=== PATIENT | male | born 1935 | race Caucasian/White ===

== ENCOUNTER 2017-11-17 12:08 | Emergency (ER) | payer MEDICARE ==
[~2017-11-17] VITALS: Ht 167.6 cm; Wt 73.5 kg
--- NOTE | 2017-11-17 12:43 | ED Lower Extremity ---
General Chief Complaint: Lower Extremity Stated Complaint: PAIN IN LT LEG,FOOT NUMB Source: patient Exam Limitations: no limitations History of Present Illness Date Seen by Provider: Nov 17, 2017 Time Seen by Provider: 12:38 Initial Comments The patient is an 82-year-old white male who presents with complaints of pain, numbness, and a sensation of coldness in his left foot this began last evening and lasted for several hours. He reports that he eventually put on socks when he got up this morning this seemed to feel better. His concern goes back some years. 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 He is not so sure which iliac. In 2004 he then had an intervention which ultimately led to a clot being removed in one iliac or femoral and stents in the other. He has done well since that time. Regrettably throughout all of this, he has continued to smoke. Onset: yesterday Pain/Injury Location: left foot Method of Injury: other Allergies and Home Medications Allergies Coded Allergies: lisinopril (Unverified Allergy, Unknown, 11/17/17) Home Medications Aspirin 81 Mg Tab.chew, 81 MG PO once a day, (Reported) Carvedilol 25 Mg Tablet, 25 MG PO BID, (Reported) Digoxin 0.125 Mg/2.5 Ml Solution, 0.125 MG PO day , (Reported) Furosemide 20 Mg Tablet, 20 MG PO every morning, (Reported) Losartan Potassium 50 Mg Tablet, 50 MG PO DAILY, (Reported) Spironolactone 25 Mg Tablet, 25 MG PO every morning, (Reported) Patient Home Medication List Home Medication List Reviewed: Yes Constitutional: see HPI Respiratory: no symptoms reported Cardiovascular: no symptoms reported Gastrointestinal: no symptoms reported Genitourinary: no symptoms reported Musculoskeletal: no symptoms reported Skin: no symptoms reported, see HPI Psychiatric/Neurological: No Symptoms Reported Past Cdyfaiq-Rthxbu-Arljjj Hx Patient Social History Recent Foreign Travel: No Contact w/Someone Who Travel: No Physical Exam Vital Signs Vital Signs - First Documented 11/17/17 12:13 Temp 97.5 Pulse 65 B/P (MAP) 167/89 (115) Pulse Ox 96 O2 Delivery Room Air Capillary Refill : General Appearance: WD/WN, no apparent distress HEENT: normal ENT inspection Neck: full range of motion Cardiovascular: normal peripheral pulses, regular rate, rhythm, no edema, no gallop, no JVD, no murmur Respiratory: chest non-tender, lungs clear, normal breath sounds, no respiratory distress, no accessory muscle use Gastrointestinal: normal bowel sounds, non tender, soft, no organomegaly, no pulsatile mass Back: normal inspection, no CVA tenderness, no vertebral tenderness Legs: right leg non-tender; bilateral leg non-tender; right leg normal inspection; bilateral leg normal inspection; right leg normal range of motion; bilateral leg normal range of motion; right leg no evidence of injury; bilateral leg no evidence of injury; right leg abrasions, right leg limited range of motion, right leg swelling 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 The femoral pulses are 2-3+ and equal bilaterally. The feet are warm. The color is normal. The tips of the toes are pink. There is good capillary fill bilaterally. The dorsalis pedis pulses are faint at best. The posterior tibials are 1+ bilaterally. Progress/Results/Core Measures Results/Orders Lab Results Laboratory Tests Test 11/17/17 12:50 11/17/17 13:05 Range/Units Urine Color YELLOW Urine Clarity CLEAR Urine pH 6 5-9 Urine Specific [place] 1.015 L 1.016-1.022 Urine Protein 2+ H NEGATIVE Urine Glucose (UA) NEGATIVE NEGATIVE Urine Ketones NEGATIVE NEGATIVE Urine Nitrite NEGATIVE NEGATIVE Urine Bilirubin 1+ H NEGATIVE Urine Urobilinogen 1 NORMAL MG/DL Urine Leukocyte Esterase 1+ H NEGATIVE Urine RBC (Auto) 5+ H NEGATIVE Urine RBC 0-2 /HPF Urine WBC 2-5 /HPF Urine Squamous Epithelial Cells RARE /HPF Urine Renal Epithelial Cells NONE /HPF Urine Crystals NONE /LPF Urine Bacteria TRACE /HPF Urine Casts PRESENT /LPF Urine Hyaline Casts >50 H /LPF Urine Mucus SMALL H /LPF Urine Culture Indicated NO White Blood Count 9.8 4.3-11.0 10^3/uL Red Blood Count 4.14 L 4.35-5.85 10^6/uL Hemoglobin 14.6 13.3-17.7 G/DL Hematocrit 41 40-54 % Mean Corpuscular Volume 99 80-99 FL Mean Corpuscular Hemoglobin 35 H 25-34 PG Mean Corpuscular Hemoglobin Concent 36 32-36 G/DL Red Cell Distribution Width 13.2 10.0-14.5 % Platelet Count 246 130-400 10^3/uL Mean Platelet Volume 9.7 7.4-10.4 FL Neutrophils (%) (Auto) 74 42-75 % Lymphocytes (%) (Auto) 16 12-44 % Monocytes (%) (Auto) 8 0-12 % Eosinophils (%) (Auto) 3 0-10 % Basophils (%) (Auto) 0 0-10 % Neutrophils # (Auto) 7.2 1.8-7.8 X 10^3 Lymphocytes # (Auto) 1.5 1.0-4.0 X 10^3 Monocytes # (Auto) 0.8 0.0-1.0 X 10^3 Eosinophils # (Auto) 0.2 0.0-0.3 10^3/uL Basophils # (Auto) 0.0 0.0-0.1 10^3/uL Sodium Level 139 135-145 MMOL/L Potassium Level 5.5 H 3.6-5.0 MMOL/L Chloride Level 107 98-107 MMOL/L Carbon Dioxide Level 22 21-32 MMOL/L Anion Gap 10 5-14 MMOL/L Blood Urea Nitrogen 18 7-18 MG/DL Creatinine 1.29 0.60-1.30 MG/DL Estimat Glomerular Filtration Rate 53 BUN/Creatinine Ratio 14 Glucose Level 105 70-105 MG/DL Calcium Level 8.9 8.5-10.1 MG/DL Total Bilirubin 0.8 0.1-1.0 MG/DL Aspartate Amino Transf (AST/SGOT) 25 5-34 U/L Alanine Aminotransferase (ALT/SGPT) 17 0-55 U/L Alkaline Phosphatase 47 40-136 U/L Total Protein 7.1 6.4-8.2 GM/DL Albumin 3.9 3.2-4.5 GM/DL My Orders Orders - MICAELA MORIN MD Cbc With Automated Diff (11/17/17 12:46) Comprehensive Metabolic Panel (11/17/17 12:46) Ua Culture If Indicated (11/17/17 12:46) Us Cole Lower Ext [id number] (11/17/17 12:46) Vital Signs/I&O 11/17/17 12:13 Temp 97.5 Pulse 65 B/P (MAP) 167/89 (115) Pulse Ox 96 O2 Delivery Room Air Departure Communication (Admissions) [id number] the sonographic Report has returned. It confirms what I was able to palpate which is to say no dorsalis pedis pulse and a week posterior tibial these findings were discussed with the patient. He is currently taking one 81 mg aspirin per day. He has previously seen Dr. Medina in [place]. He was informed that our cardiologists do peripheral vascular work as well. He was informed that this would involve the a dye study and possible stenting. He is not yet ready to undertake that. He was again suggested that he stop smoking. He replied that he had heard that many times before. We compromised by agreeing that he would call Impression Primary Impression: peripheral vascular disease Disposition: 01 HOME, SELF-CARE Condition: Improved Departure-Patient Inst. Decision time for Depature: 15:17 Referrals: NO,LOCAL PHYSICIAN (PCP) Primary Care Physician Add. Discharge Instructions: All discharge instructions reviewed with patient and/or family. Voiced understanding. Continue one aspirin daily. Stop smoking If recurrent symptoms contact Dr. Sewell,s office at [phone] for appointment MICAELA MORIN MD Nov 17, 2017 12:43
[2017-11-17 13:09] LABS: CLARITY,URINE CLEAR; COLOR,URINE YELLOW; GLUCOSE, URINE (UA) NEGATIVE (NEGATIVE); KETONES,URINE NEGATIVE (NEGATIVE); LEUKOCYTE ESTERASE ,URINE 1+ (NEGATIVE); NITRITE,URINE NEGATIVE (NEGATIVE); PH,URINE 6 (5-9); PROTEIN,URINE 2+ (NEGATIVE); UROBILINOGEN,URINE 1 MG/DL (NORMAL)
[2017-11-17 13:13] LABS: BASOPHILS % (AUTO) 0 % (0-10); EOSINOPHILS # (AUTO) 0.2 10^3/uL (0.0-0.3); EOSINOPHILS % (AUTO) 3 % (0-10); HEMATOCRIT 41 % (40-54); HEMOGLOBIN 14.6 G/DL (13.3-17.7); LYMPHOCYTES # (AUTO) 1.5 X 10^3 (1.0-4.0); LYMPHOCYTES % (AUTO) 16 % (12-44); MEAN CORPUSCULAR HEMOGLOBIN 35 PG (25-34); MEAN CORPUSCULAR HGB CONC 36 G/DL (32-36); MEAN CORPUSCULAR VOLUME 99 FL (80-99); MEAN PLATELET VOLUME 9.7 FL (7.4-10.4); MONOCYTES # (AUTO) 0.8 X 10^3 (0.0-1.0); MONOCYTES % (AUTO) 8 % (0-12); NEUTROPHILS # (AUTO) 7.2 X 10^3 (1.8-7.8); NEUTROPHILS % (AUTO) 74 % (42-75); PLATELET COUNT 246 10^3/uL (130-400); RED BLOOD COUNT 4.14 10^6/uL (4.35-5.85); RED CELL DISTRIBUTION WIDTH 13.2 % (10.0-14.5); WHITE BLOOD COUNT 9.8 10^3/uL (4.3-11.0)
[2017-11-17] MEDS ORDERED: CARV25TA PO (13:30)
[2017-11-17] MEDS ORDERED: FURO20TA4 PO (13:30)
[2017-11-17] MEDS ORDERED: DIGO0.12 PO (13:30)
[2017-11-17] MEDS ORDERED: LOSA50TA36 PO (13:30)
[2017-11-17] MEDS ORDERED: SPIR25TA3 PO (13:30)
[2017-11-17 13:31] LABS: BACTERIA,URINE TRACE /HPF; HYALINE CASTS, URINE >50 /LPF; RBC,URINE 0-2 /HPF; SQUAMOUS EPITHELIAL CELL,UR RARE /HPF
[2017-11-17] MEDS ORDERED: ASPI-999 PO (13:33)
[2017-11-17] MEDS ORDERED: ACET-77 PO (13:33)
[2017-11-17 13:45] LABS: ALBUMIN 3.9 GM/DL (3.2-4.5); BILIRUBIN,TOTAL 0.8 MG/DL (0.1-1.0); CALCIUM 8.9 MG/DL (8.5-10.1); CREATININE SERUM 1.29 MG/DL (0.60-1.30); POTASSIUM 5.5 MMOL/L (3.6-5.0); TOTAL PROTEIN 7.1 GM/DL (6.4-8.2)
[2017-11-17 14:58] LABS: BILIRUBIN,URINE 1+ (NEGATIVE)
--- NOTE | 2017-11-17 14:59 | Diagnostic Imaging Report ---
INDICATION: Left foot pain. TECHNIQUE: The bilateral lower extremity arterial Doppler study was performed in the routine fashion with color-flow Doppler and waveform analysis. FINDINGS: On the right side, there is diffuse plaquing. There is moderate velocity elevation of the mid SFA on the right side and distal SFA, compatible with moderate stenoses. Flow converts to monophasic in the tibial vessels. On the left side, there is mild velocity elevation in the common femoral artery. There is monophasic flow in the left posterior tibial artery with no flow detected in the dorsalis pedis. IMPRESSION: Peripheral vascular disease as described above with a moderate stenosis in the right SFA and a moderate stenosis in the left common femoral artery. There is monophasic flow in the tibial vessels on the right side. There is slow monophasic flow in the left posterior tibial artery with absent flow in the dorsalis pedis on the left side. Consider angiography or CTA for further anatomic definition as clinically warranted. Dictated by: Dictated on workstation # [id number]
[2017-11-17 15:29] VITALS: BP 143/114
== END 2017-11-17 15:33 | disposition home or self-care (01) ==
LOC: ER 12:12
DX: I73.9 Peripheral vascular disease, unspecified (principal); Z79.82 Long term (current) use of aspirin; Z88.8 Allergy status to other drugs, medicaments and biological substances
CPT/HCPCS: 36415; 80053; 81000; 85025; 93925

== ENCOUNTER 2018-08-03 09:42 | Inpatient (IN) | payer MEDICARE ==
[2018-08-03] VITALS (12 sets, daily range): BP systolic 87–154; BP diastolic 55–118
[~2018-08-03] VITALS: Ht 167.6 cm; Wt 73.6 kg
[~2018-08-03 09:42] MED LIST: ACET-77 PO; ASPI-999 PO; CARV25TA PO; DIGO0.12 PO; FURO20TA4 PO; LOSA50TA63 PO; SPIR25TA5 PO
--- OUTSIDE RECORDS SUMMARY | 2018-08-03 09:58 | XMS REPORT ---
Author Author ACACIA PATEL Organization [facility] Address [address] [place] [address] Care Team Providers Care House Wirer Helper Name Role Phone ACACIA PATEL Unavailable PROBLEMS Unknown Problems ALLERGIES Substance Reaction Event Type Date Status Lisinopril Unknown Drug Allergy Nov, Active ENCOUNTERS Encounter Location Date Diagnosis [facility] [address] [facility] [id number] [address] Nov, Lower abdominal pain R10.30 IMMUNIZATIONS No Known Immunizations SOCIAL HISTORY Never Assessed REASON FOR VISIT Right sided abd pain started yesterday- emesis x1 JStrasserRN PLAN OF CARE Activity Details Follow Up prn Reason: VITAL SIGNS Height 66 in 2017-11-08 Weight 163 lbs 2017-11-08 Temperature 97.3 degrees Fahrenheit 2017-11-08 Heart Rate 64 bpm 2017-11-08 Respiratory Rate 20 2017-11-08 BMI 26.31 kg/m2 2017-11-08 Blood pressure systolic 124 mmHg 2017-11-08 Blood pressure diastolic 78 mmHg 2017-11-08 MEDICATIONS Medication Instructions Dosage Frequency Start Date End Date Duration Status Digoxin 125 MCG Orally Once a day 1 tablet 24h Active Furosemide 20 MG Orally Once a day 1 tablet 24h Active Spironolactone 25 MG Orally Once a day 1 tablet with food 24h Active Carvedilol 25 MG Active Losartan Potassium 50 MG Orally Once a day 1 tablet 24h Active Garlic Oil 3 MG Active Vitamin E 400 UNIT Orally Once a day 1 capsule 24h Active Acetaminophen 500 MG Orally every 6 hrs 1 capsule as needed 6h Active ASA 1 tab Active RESULTS Name Result Date Reference Range Xray : Abdomen 2v (Upright and KUB) - IN HOUSE 2017-11-08 PROCEDURES Procedure Date Ordered Result Body Site X-RAY EXAM ABDOMEN 2 VIEWS November 08, 2017 INSTRUCTIONS MEDICATIONS ADMINISTERED No Known Medications
[2018-08-03 10:42] LABS: BASOPHILS % (AUTO) 0 % (0-10); EOSINOPHILS # (AUTO) 0.1 10^3/uL (0.0-0.3); EOSINOPHILS % (AUTO) 1 % (0-10); HEMATOCRIT 36 % (40-54); HEMOGLOBIN 12.2 G/DL (13.3-17.7); LYMPHOCYTES # (AUTO) 0.8 X 10^3 (1.0-4.0); LYMPHOCYTES % (AUTO) 9 % (12-44); MEAN CORPUSCULAR HEMOGLOBIN 36 PG (25-34); MEAN CORPUSCULAR HGB CONC 34 G/DL (32-36); MEAN CORPUSCULAR VOLUME 107 FL (80-99); MONOCYTES # (AUTO) 0.5 X 10^3 (0.0-1.0); MONOCYTES % (AUTO) 5 % (0-12); NEUTROPHILS # (AUTO) 7.8 X 10^3 (1.8-7.8); NEUTROPHILS % (AUTO) 86 % (42-75); PLATELET COUNT 140 10^3/uL (130-400); RED CELL DISTRIBUTION WIDTH 13.8 % (10.0-14.5); WHITE BLOOD COUNT 9.2 10^3/uL (4.3-11.0)
[2018-08-03 10:53] LABS: ALBUMIN 3.7 GM/DL (3.2-4.5); BILIRUBIN,TOTAL 1.2 MG/DL (0.1-1.0); CALCIUM 8.9 MG/DL (8.5-10.1); CREATININE SERUM 1.49 MG/DL (0.60-1.30); MAGNESIUM 2.3 MG/DL (1.8-2.4); POTASSIUM 3.7 MMOL/L (3.6-5.0); TOTAL PROTEIN 6.5 GM/DL (6.4-8.2)
--- NOTE | 2018-08-03 11:06 | Diagnostic Imaging Report ---
INDICATION: Dyspnea PA and lateral views of the chest are obtained. There is no previous study available at this time for comparison. Overall heart size and pulmonary vascularity are within normal limits. There is no pneumothorax or consolidation. No significant pleural fluid is identified. There is increased density over the lower chest bilaterally. This appears to be related to superimposed breast tissue. IMPRESSION: No acute abnormalities identified. Dictated by: Dictated on workstation # [id number]
[2018-08-03 11:13] LABS: TSH (THYROID ANALYZER) 0.63 UIU/ML (0.35-4.94)
--- NOTE | 2018-08-03 12:19 | ED General ---
General Chief Complaint: Respiratory Problems Stated Complaint: SOB, COUGH OF PHLEGM Nursing Triage Note: PT AMBULATES TO ROOM 4 PT CO OF SOA, PT HAS PROD COUGH HAS BEEN SICK FOR 2 WEEKS Nursing Sepsis Screen: No Definite Risk Source of Information: Patient, Family, Old Records Exam Limitations: No Limitations History of Present Illness Date Seen by Provider: Aug 03, 2018 Time Seen by Provider: 09:55 Initial Comments This 83-year-old gentleman presents to the emergency room with complaints of cough with productive sputum, sweats, dyspnea on exertion, and weakness that started about 2 weeks ago. He denies any chest pain today but has had a few twinges of chest pain in the recent past, last episode was a few days ago. He is on digoxin. He sees Dr. Petitt in [place] for his cardiac care. He has not actually seen at Dr. Pettit yet but did see his nurse practitioner July 20. I did call Dr. Pettit's office. They do not have any recent studies on this patient such as echo, stress test, or cardiac catheter. Patient does have A. fib. He takes aspirin but is not anticoagulated. Patient answers questions appropriately but is not a particularly good historian. He is on digoxin. Allergies and Home Medications Allergies Coded Allergies: lisinopril (Unverified Allergy, Unknown, 11/17/17) Home Medications Aspirin 81 Mg Tab.chew, 81 MG PO once a day, (Reported) Carvedilol 25 Mg Tablet, 25 MG PO BID, (Reported) Digoxin 0.125 Mg/2.5 Ml Solution, 0.125 MG PO , (Reported) Furosemide 20 Mg Tablet, 20 MG PO every morning, (Reported) Losartan Potassium 50 Mg Tablet, 50 MG PO DAILY, (Reported) Spironolactone 25 Mg Tablet, 25 MG PO every morning, (Reported) Patient Home Medication List Home Medication List Reviewed: Yes Review of Systems Review of Systems Constitutional: see HPI EENTM: no symptoms reported Respiratory: see HPI Cardiovascular: see HPI Gastrointestinal: no symptoms reported Genitourinary: no symptoms reported Musculoskeletal: no symptoms reported Skin: no symptoms reported Psychiatric/Neurological: No Symptoms Reported Hematologic/Lymphatic: No Symptoms Reported Immunological/Allergic: no symptoms reported Past Obkbzkb-Dwblbr-Hpgjpm Hx Patient Social History Alcohol Use: Rarely Uses Alcohol Beverage of Choice: Beer Recreational Drug Use: No Smoking Status: Current Everyday Smoker Type Used: Cigarettes 2nd Hand Smoke Exposure: Yes Recent Foreign Travel: No Contact w/Someone Who Travel: No Recent Infectious Disease Expo: No Recent Hopitalizations: No Seasonal Allergies Seasonal Allergies: No Past Medical History Surgeries: Yes Abdominal, Cardiac, Vascular Surgery (abdominal aortic aneurysm repair) Respiratory: Yes COPD Aneurysm, Atrial Fibrillation, Deep Vein Thrombosis, Hypertension Neurological: No Genitourinary: No Gastrointestinal: No Musculoskeletal: No Endocrine: No HEENT: No Cancer: No Psychosocial: No Integumentary: No Blood Disorders: No Adverse Reaction/Blood Tranf: No Physical Exam Vital Signs Vital Signs - First Documented 08/03/18 09:50 Temp 99.9 Pulse 78 Resp 23 B/P (MAP) 130/101 (111) Pulse Ox 93 Capillary Refill : Less Than 3 Seconds Height, Weight, BMI Height: 5'6.00" Weight: 165lbs. oz. 74.306335yu; BMI Method:Stated General Appearance: No Apparent Distress, WD/WN HEENT: PERRL/EOMI, Normal ENT Inspection Neck: Normal Inspection Respiratory: No Accessory Muscle Use, No Respiratory Distress, Crackles ( subtle in the bases) Cardiovascular: No Murmur, Irregularly Irregular (normal rate), Other (trace lower extremity edema) Gastrointestinal: Normal Bowel Sounds, Non Tender, Soft Extremity: Non Tender, Other (trace lower extremity edema) Neurologic/Psychiatric: Alert, Oriented x3, No Motor/Sensory Deficits, Normal Mood/Affect, mill tender II-XII Norm as Tested Skin: Normal Color, Warm/Dry Progress/Results/Core Measures Suspected Sepsis Recent Fever Within 48 Hours: No Infection Criteria Present: None New/Unexplained Altered Menta: No Sepsis Screen: No Definite Risk SIRS Temperature:99.9 Pulse: 78 Respiratory Rate: 23 Laboratory Tests 08/03/18 10:20: White Blood Count 9.2 Blood Pressure 130 /101 Mean: 111 Laboratory Tests 08/03/18 10:20: Creatinine 1.49H, Platelet Count 140, Total Bilirubin 1.2H Results/Orders Lab Results Laboratory Tests Test 08/03/18 10:20 Range/Units White Blood Count 9.2 4.3-11.0 10^3/uL Red Blood Count 3.40 L 4.35-5.85 10^6/uL Hemoglobin 12.2 L 13.3-17.7 G/DL Hematocrit 36 L 40-54 % Mean Corpuscular Volume 107 H 80-99 FL Mean Corpuscular Hemoglobin 36 H 25-34 PG Mean Corpuscular Hemoglobin Concent 34 32-36 G/DL Red Cell Distribution Width 13.8 10.0-14.5 % Platelet Count 140 130-400 10^3/uL Mean Platelet Volume 12.0 H 7.4-10.4 FL Neutrophils (%) (Auto) 86 H 42-75 % Lymphocytes (%) (Auto) 9 L 12-44 % Monocytes (%) (Auto) 5 0-12 % Eosinophils (%) (Auto) 1 0-10 % Basophils (%) (Auto) 0 0-10 % Neutrophils # (Auto) 7.8 1.8-7.8 X 10^3 Lymphocytes # (Auto) 0.8 L 1.0-4.0 X 10^3 Monocytes # (Auto) 0.5 0.0-1.0 X 10^3 Eosinophils # (Auto) 0.1 0.0-0.3 10^3/uL Basophils # (Auto) 0.0 0.0-0.1 10^3/uL Sodium Level 144 135-145 MMOL/L Potassium Level 3.7 3.6-5.0 MMOL/L Chloride Level 103 98-107 MMOL/L Carbon Dioxide Level 26 21-32 MMOL/L Anion Gap 15 H 5-14 MMOL/L Blood Urea Nitrogen 28 H 7-18 MG/DL Creatinine 1.49 H 0.60-1.30 MG/DL Estimat Glomerular Filtration Rate 45 BUN/Creatinine Ratio 19 Glucose Level 181 H 70-105 MG/DL Calcium Level 8.9 8.5-10.1 MG/DL Corrected Calcium 9.1 8.5-10.1 MG/DL Magnesium Level 2.3 1.8-2.4 MG/DL Total Bilirubin 1.2 H 0.1-1.0 MG/DL Aspartate Amino Transf (AST/SGOT) 48 H 5-34 U/L Alanine Aminotransferase (ALT/SGPT) 37 0-55 U/L Alkaline Phosphatase 55 40-136 U/L Troponin I 0.115 H <0.028 NG/ML C-Reactive Protein High Sensitivity 6.18 H 0.00-0.50 MG/DL B-Type Natriuretic Peptide 2247.8 H <100.0 PG/ML Total Protein 6.5 6.4-8.2 GM/DL Albumin 3.7 3.2-4.5 GM/DL TSH [place] Testing 0.63 0.35-4.94 UIU/ML Digoxin Level 1.13 0.80-2.00 NG/ML Micro Results Microbiology 08/03/18 Influenza Types A,B Antigen (ANGE) - Final, Complete My Orders Orders - BENNY GARCIA MD BNP (08/03/18 10:32) Cbc With Automated Diff (08/03/18 10:32) Comprehensive Metabolic Panel (08/03/18 10:32) Hs C Reactive Protein (08/03/18 10:32) Magnesium (08/03/18 10:32) Thyroid Analyzer (08/03/18 10:32) Troponin I (08/03/18 10:32) Influenza A And B Antigens (08/03/18 10:32) Saline Lock/Iv-Start (08/03/18 10:32) Ekg Tracing (08/03/18 10:32) Monitor-Rhythm Ecg Trace Only (08/03/18 10:32) Chest Pa/Lat (2 View) (08/03/18 10:32) Digoxin (08/03/18 11:35) Vital Signs/I&O 08/03/18 09:50 Temp 99.9 Pulse 78 Resp 23 B/P (MAP) 130/101 (111) Pulse Ox 93 Capillary Refill : Less Than 3 Seconds Blood Pressure Mean: 111 ECG Initial ECG Impression Date: Aug 03, 2018 Initial ECG Impression Time: 09:55 Initial ECG Rate: 81 Initial ECG Rhythm: A Fib/Flutter Initial ECG Impression: Atrial Fibrillation Comment Rate controlled atrial fibrillation. No ST elevation or depression. Diagnostic Imaging Diagonstic Imaging: Xray Plain Films/CT/US/NM/MRI: chest Comments Chest x-ray viewed by me and report reviewed. See report below: NAME: MARCOS LOPEZ [facility] REC#: [id number] PT STATUS: REG ER : 1935 PHYSICIAN: BENNY GARCIA MD ADMIT DATE: 08/03/18/ER Draft Date of Exam:08/03/18 CHEST PA/LAT (2 VIEW) INDICATION: Dyspnea PA and lateral views of the chest are obtained. There is no previous study available at this time for comparison. Overall heart size and pulmonary vascularity are within normal limits. There is no pneumothorax or consolidation. No significant pleural fluid is identified. There is increased density over the lower chest bilaterally. This appears to be related to superimposed breast tissue. IMPRESSION: No acute abnormalities identified. Dictated on workstation # [id number] Dict: 08/03/18 1103 Trans: 08/03/18 1106 AMBROSE [id number] Interpreted by: ARANZA BURGESS MD Departure Communication (Admissions) Time/Spoke to Admitting Phy: 12:10 Dr. Irby Time/Spoke to Consulting Phy: 11:55 Dr. Sidhu Impression Primary Impression: Dyspnea Qualified Codes: R06.09 - Other forms of dyspnea Additional Impressions: Cough Chest pain Qualified Codes: R07.9 - Chest pain, unspecified Disposition: ADMITTED INPATIENT Condition: Stable Admissions Decision to Admit Reason: Admit from ER (General) Decision to Admit/Date: Aug 03, 2018 Time/Decision to Admit Time: 11:55 Departure-Patient Inst. Referrals: NO,LOCAL PHYSICIAN (PCP/Family) Primary Care Physician BENNY GARCIA MD Aug 03, 2018 12:19
--- NOTE | 2018-08-03 13:07 | Consultation-Cardiology ---
HPI-Cardiology Cardiology Consultation: Date of Consultation 08/03/18 Time Seen by a Provider: 13:00 Date of Admission Attending Physician Syl Irby MD Admitting Physician No,Local Physician Consulting Physician BRAD MATTHEWS MD, MA, FACP, FACC, FSCAI, CCDS HPI: Chief Complaint: CC: Shortness of breath, cough 83 yo man with several days of increasing shortness of breath and cough productive of yellowish sputum and gen malaise. Occ twinges of sharp, left- or right-sided chest pain, mild to mod, lasting only a few seconds, occurring daily. No leg swelling or palp or syncope Review of Systems-Cardiology Review of Systems Constitutional: malaise, tiredness; No weight loss, No weight gain Eyes: No vision change Ears/Nose/Throat: No ear discharge, No recent hearing loss Respiratory: As described under HPI Cardiovascular: As described under HPI Gastrointestinal: No constipation, No diarrhea, No nausea, No vomiting, No stool coloration changes Genitourinary: No dysuria, No hematuria, No urine frequency changes Musculoskeletal: back pain (chronic) Skin: No rash, No ulcerations Psychiatric/Neurological: No focal weakness, No syncope Hematologic: No bleeding abnormalities HHX-Thbhin-Jwimyi Hx Patient Social History Alcohol Use: Rarely Uses Recreational Drug Use: No Smoking Status: Current Everyday Smoker Type Used: Cigarettes 2nd Hand Smoke Exposure: Yes Recent Foreign Travel: No Recent Infectious Disease Expo: No Hospitalization with Isolation: Denies Past Medical History PMH As described under Assessment. Allergies and Home Medications Allergies Coded Allergies: lisinopril (Unverified Allergy, Unknown, 11/17/17) Home Medications Aspirin 81 Mg Tab.chew, 81 MG PO once a day, (Reported) Carvedilol 25 Mg Tablet, 25 MG PO BID, (Reported) Digoxin 0.125 Mg/2.5 Ml Solution, 0.125 MG PO day , (Reported) Furosemide 20 Mg Tablet, 20 MG PO every morning, (Reported) Losartan Potassium 50 Mg Tablet, 50 MG PO DAILY, (Reported) Spironolactone 25 Mg Tablet, 25 MG PO every morning, (Reported) Patient Home Medication List Home Medication List Reviewed: Yes Physical Exam-Cardiology Physical Exam Vital Signs/I&O 08/03/18 08/03/18 09:50 12:40 Temp 99.9 Pulse 78 77 Resp 23 23 B/P (MAP) 130/101 (111) 134/92 (106) Pulse Ox 93 93 Capillary Refill : Less Than 3 Seconds Constitutional: AAO x 3, well-developed, well-nourished HEENT: other (edentulous upper jaw; several missing teeth in lower jaw), EOMI, hearing is well preserved; No xanthelasmas are seen Neck: carotid pulses are 2 + bilaterally, with good upstrokes Respiratory: No accessory muscle use; other (scattered rhonchi, prolonged exp) Cardiovascular: irregularly irregular, S1 and S2, systolic murmur (soft BHANU at card base) Gastrointestinal: No tender; soft; No guarding, No rebound; audible bowel sounds Extremities: No clubbing, No cyanosis, No significant edema Neurologic/Psychiatric: oriented x 3, grossly intact, power is 5/5 both on sides Skin: No rash on exposed areas, No ulcerations on exposed areas Data Review Labs Laboratory Tests 08/03/18 10:20: White Blood Count 9.2, Red Blood Count 3.40L, Hemoglobin 12.2L, Hematocrit 36L, Mean Corpuscular Volume 107H, Mean Corpuscular Hemoglobin 36H, Mean Corpuscular Hemoglobin Concent 34, Red Cell Distribution Width 13.8, Platelet Count 140, Mean Platelet Volume 12.0H, Neutrophils (%) (Auto) 86H, Lymphocytes (%) (Auto) 9L, Monocytes (%) (Auto) 5, Eosinophils (%) (Auto) 1, Basophils (%) (Auto) 0, Neutrophils # (Auto) 7.8, Lymphocytes # (Auto) 0.8L, Monocytes # (Auto) 0.5, Eosinophils # (Auto) 0.1, Basophils # (Auto) 0.0, Sodium Level 144, Potassium Level 3.7, Chloride Level 103, Carbon Dioxide Level 26, Anion Gap 15H, Blood Urea Nitrogen 28H, Creatinine 1.49H, Estimat Glomerular Filtration Rate 45, BUN/ Creatinine Ratio 19, Glucose Level 181H, Calcium Level 8.9, Corrected Calcium 9.1, Magnesium Level 2.3, Total Bilirubin 1.2H, Aspartate Amino Transf (AST/SGOT ) 48H, Alanine Aminotransferase (ALT/SGPT) 37, Alkaline Phosphatase 55, Troponin I 0.115H, C-Reactive Protein High Sensitivity 6.18H, B-Type Natriuretic Peptide 2247.8H, Total Protein 6.5, Albumin 3.7, TSH [place] Testing 0.63, Digoxin Level 1.13 Microbiology 08/03/18 Influenza Types A,B Antigen (ANGE) - Final, Complete Laboratory Tests 08/03/18 10:20 A/P-Cardiology Assessment/Admission Diagnosis Shortness of breath, multifactorial (see below) Ac exac of COPD due to lower resp tract infection Ac CHF of undetermined etiology, probably systolic (based on patient's home med list) 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 Arterial u/s of November 2017: moderate stenosis in the right SFA and the left common femoral artery; monophasic flow in the tibial vessels on the right side. There is slow monophasic flow in the left posterior tibial artery with absent flow in the dorsalispedis on the left side Non-compliance. 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 We will continue therapy with bb, furosemide , and spironolactone * We will obtain an echocardiogram * Will also need myocard perf imaging to eval for infarction / ischemia when clinically improved * We have advised immediate and complete smoking cessation * He needs OAC for stroke prophylaxis (is on none currently). I reviewed this issue with him in detail. He seems willing * We will continue ASA because he provides a vague h/o a "heart attack," he seems to have had no cor interventions * Further recs to be based on his hosp course BRAD MATTHEWS MD FACP [facility] CCDS Aug 03, 2018 13:07
[2018-08-03] MEDS ORDERED: CATHETER FLUSH 10 ML SYR IV PRN (13:30)
[2018-08-03] MEDS ORDERED: SPIRONOLACTONE 25 MG (ALDACTONE) TAB PO NR (13:45)
[2018-08-03] MEDS ORDERED: APIXABAN 5 MG (ELIQUIS) TABLET PO NR (13:45)
[2018-08-03] MEDS ORDERED: NS IV 1000 ML 1,000 ML IV SCH (13:45)
[2018-08-03] MEDS ORDERED: FUROSEMIDE 40 MG/4 ML INJ (LASIX) IVP NR (13:45)
[2018-08-03] MEDS ORDERED: ASPI-983 PO (14:00)
[2018-08-03] MEDS ORDERED: DIGO125T PO (14:00)
--- NOTE | 2018-08-03 14:03 | NUR ---
SPOKE WITH THE PATIENT ABOUT HIS MEDICATIONS. HE HAD MOST OF HIS BOTTLES [facility] WITH [facility] HE FORGOT HIS COREG AND ASPIRIN AT HOME BUT VERIFIED HOW HE TAKES THEM. [facility] BOTTLES HE HAS WITH HIM: 05-24-18 FUROSEMIDE 20MG BID #180 05-20-18 LOSARTAN 50MG DAILY #90 05-18-18 SPIRONOLACTONE 25MG DAILY #90 05-10-18 DIGOXIN 0.125 DAILY #90 HE STATES HE ALSO HAS COREG 25MG AT HOME, HE IS CURRENTLY TAKING 1/2 TAB BID. HE ALSO TAKES ASPIRIN 81MG DAILY OTC.
--- NOTE | 2018-08-03 14:08 | History & Physical-Hospitalist ---
History of Present Illness HPI/Chief Complaint Pt is an 83yoCM with a PMH of CHF, PAD, CAD who presented to the ER due to weakness, coughing, and SOB. He states his symptoms started a few days ago and he thought he had the flu. He denies any fevers though or sick contacts. He has had some swelling of his legs though. He otherwise is unable to provide me much history. He believes he has had a previous cardiac work up at [facility] but he's not for sure if that's correct and he doesn't know what was done. He also thinks he had an SC 4-5 years ago but is unsure about that as well. Source: patient Exam Limitations: clinical condition Date Seen 08/03/18 Time Seen by a Provider: 14:00 Attending Physician Rell Irby MD PCP No,Local Physician Referring Physician Date of Admission Aug 03, 2018 at 12:34 Home Medications & Allergies Home Medications Reviewed patient Home Medication Reconciliation performed by pharmacy medication reconciliations prosthetics technician and/or nursing. Patients Allergies have been reviewed. Allergies Allergies Coded Allergies lisinopril (Unverified Allergy, Unknown, 11/17/17) Past Dyrsiww-Hveboc-Wvieek Hx Past Med/Social Hx: Reviewed Nursing Past Med/Soc Hx Patient Social History Alcohol Use: Rarely Uses Alcohol Beverage of Choice: Beer Recreational Drug Use: No Smoking Status: Current Everyday Smoker Type Used: Cigarettes 2nd Hand Smoke Exposure: Yes Recent Foreign Travel: No Contact w/other who traveled: No Recent Hopitalizations: No Recent Infectious Disease Expo: No Immunizations Up To Date Date of Pneumonia Vaccine: Mar 07, 2015 Date of Influenza Vaccine: Mar 07, 2018 Seasonal Allergies Seasonal Allergies: No Past Medical History Surgeries: Abdominal, Cardiac, Vascular Surgery (abdominal aortic aneurysm repair) Cardiac: Aneurysm, Atrial Fibrillation, Cardiomyopathy, Coronary Artery Disease , Deep Vein Thrombosis, Hypertension History of Blood Disorders: No Adverse Reaction to Blood Ramos: No Family History Reviewed Nursing Family Hx No Pertinent Family Hx Review of Systems Constitutional: chills; No fever; weakness Respiratory: cough; No orthopnea; short of breath Cardiovascular: No chest pain, No palpitations Gastrointestinal: No abdominal pain, No diarrhea; loss of appetite; No nausea, No vomiting Genitourinary: decreased output; No dysuria Musculoskeletal: no symptoms reported Skin: no symptoms reported Psychiatric/Neurological: No Symptoms Reported Physical Exam Physical Exam Vital Signs Vital Signs - First Documented 08/03/18 08/03/18 08/03/18 09:50 13:15 17:35 Temp 99.9 Pulse 78 Resp 23 B/P (MAP) 130/101 (111) Pulse Ox 93 O2 Delivery Room Air FiO2 21 Capillary Refill : Less Than 3 Seconds Height, Weight, BMI Height: 5'6.00" Weight: 165lbs. 0.0oz. 74.414641wy; 26.6 BMI Method:Stated General Appearance: No Apparent Distress, Chronically ill HEENT: Moist Mucous Membranes; No Scleral Icterus (L), No Scleral Icterus (R) Neck: Normal Inspection, Supple Respiratory: Lungs Clear, No Accessory Muscle Use, No Respiratory Distress Cardiovascular: Regular Rate, Rhythm, No Murmur, Normal Peripheral Pulses Gastrointestinal: Normal Bowel Sounds, Non Tender, Soft Extremity: Normal Capillary Refill, Non Tender, No Calf Tenderness, Pedal Edema (trace) Neurologic/Psychiatric: Alert, Oriented x3 (but poor insight), No Motor/ Sensory Deficits, Normal Mood/Affect Skin: Normal Color, Warm/Dry Results Results/Procedures Labs Laboratory Tests 08/03/18 10:20 08/04/18 03:40 Patient resulted labs reviewed. Imaging: Reviewed Imaging Report Imaging Date of Exam: 08/03/18 CHEST PA/LAT (2 VIEW) INDICATION: Dyspnea PA and lateral views of the chest are obtained. There is no previous study available at this time for comparison. Overall heart size and pulmonary vascularity are within normal limits. There is no pneumothorax or consolidation. No significant pleural fluid is identified. There is increased density over the lower chest bilaterally. This appears to be related to superimposed breast tissue. IMPRESSION: No acute abnormalities identified. Assessment/Plan Admission Diagnosis CHF exacerbation Admission Status: Inpatient Order (span 2 midnights) Reason for Inpatient Admission: On lasix and failed outpatient management, elevated troponin Diagnosis/Problems Diagnosis/Problems (1) CHF exacerbation Status: Acute Assessment & Plan: Unsure of is systolic dysfunction but given med list likely etiology SOB with BNP elevation Continue on home ARB, BB, spirolactone IV Lasix Echo ordered Cardiology consulted, appreciate recs Qualifiers: Heart failure type: systolic Qualified Codes: I50.23 - Acute on chronic systolic (congestive) heart failure (2) COPD (chronic obstructive pulmonary disease) Status: Chronic Assessment & Plan: Likely underlying COPD given 62 pack year history No wheezing or oxygen requirement Will add MAT Protocol Qualifiers: COPD type: unspecified COPD Qualified Codes: J44.9 - Chronic obstructive pulmonary disease, unspecified (3) Atrial fibrillation Status: Chronic Assessment & Plan: Continue Coreg Rate controlled Dr Sidhu discussed anticoagulation with patient who is agreeable Started on Eliquis Trend creatinine- just under threshold for lower dose Qualifiers: Atrial fibrillation type: chronic Qualified Codes: I48.2 - Chronic atrial fibrillation (4) CAD (coronary artery disease) Status: Chronic Assessment & Plan: Unsure of previous interventions Records requested Cardiology consulted, appreciate recs Continue ASA Qualifiers: Coronary Disease-Associated Artery/Lesion type: [place] artery [place] vs. transplanted heart: [place] heart Associated angina: without angina Qualified Codes: I25.10 - Atherosclerotic heart disease of [place] coronary artery without angina pectoris (5) CKD (chronic kidney disease) Status: Chronic Assessment & Plan: Likely CKD Trend given lasix Qualifiers: Chronic kidney disease stage: stage 3 (moderate) Qualified Codes: N18.3 - Chronic kidney disease, stage 3 (moderate) (6) Transaminitis Assessment & Plan: Likely due to congestion trend (7) Weakness Assessment & Plan: Will consult PT/OT (8) Tobacco abuse Status: Chronic Assessment & Plan: Recommended cessation Patient education Clinical Quality Measures DVT/VTE Risk/Contraindication: Risk Factor Score Per Nursin RFS Level Per Nursing on Admit: 4+=Very High RELL IRBY MD Aug 03, 2018 14:08
[2018-08-03] MEDS: CATHETER FLUSH 10 ML SYR IV SCH ×2 (17:02→21:16)
[2018-08-03] MEDS ORDERED: RT-ALBUTEROL/IPRATROPIUM 3 ML (DUONEB) VIAL INH PRN (17:45)
[2018-08-03] MEDS: RT-ALBUTEROL/IPRATROPIUM 3 ML (DUONEB) VIAL INH SCH (20:40)
[2018-08-03] MEDS: CARVEDILOL 6.25 MG (COREG) TAB PO SCH (21:15)
[2018-08-04] MEDS: RT-ALBUTEROL/IPRATROPIUM 3 ML (DUONEB) VIAL INH SCH ×4 (03:07→20:45)
[2018-08-04 03:53] LABS: BASOPHILS % (AUTO) 0 % (0-10); EOSINOPHILS # (AUTO) 0.1 10^3/uL (0.0-0.3); EOSINOPHILS % (AUTO) 1 % (0-10); HEMATOCRIT 37 % (40-54); HEMOGLOBIN 12.2 G/DL (13.3-17.7); LYMPHOCYTES # (AUTO) 0.9 X 10^3 (1.0-4.0); LYMPHOCYTES % (AUTO) 13 % (12-44); MEAN CORPUSCULAR HEMOGLOBIN 35 PG (25-34); MEAN CORPUSCULAR HGB CONC 33 G/DL (32-36); MEAN CORPUSCULAR VOLUME 106 FL (80-99); MEAN PLATELET VOLUME 11.4 FL (7.4-10.4); MONOCYTES # (AUTO) 0.5 X 10^3 (0.0-1.0); MONOCYTES % (AUTO) 7 % (0-12); NEUTROPHILS # (AUTO) 5.5 X 10^3 (1.8-7.8); NEUTROPHILS % (AUTO) 78 % (42-75); PLATELET COUNT 138 10^3/uL (130-400); RED CELL DISTRIBUTION WIDTH 13.9 % (10.0-14.5); WHITE BLOOD COUNT 7.1 10^3/uL (4.3-11.0)
[2018-08-04 04:00] VITALS: BP 137/72
[2018-08-04] MEDS: CATHETER FLUSH 10 ML SYR IV SCH ×3 (04:16→21:20)
[2018-08-04 04:18] LABS: ALBUMIN 3.6 GM/DL (3.2-4.5); BILIRUBIN,TOTAL 0.8 MG/DL (0.1-1.0); CALCIUM 8.7 MG/DL (8.5-10.1); CREATININE SERUM 1.36 MG/DL (0.60-1.30); MAGNESIUM 2.1 MG/DL (1.8-2.4); POTASSIUM 3.4 MMOL/L (3.6-5.0); TOTAL PROTEIN 6.2 GM/DL (6.4-8.2)
--- NOTE | 2018-08-04 04:46 | Pulmonary Consultation ---
History of Present Illness History of Present Illness Date of Consultation 08/04/18 04:40 Time Seen by Provider: 04:41 Date of Admission History of Present Illness 83yo with hx of CHF, PAD, CAD and Afib who presented to ED secondary to worsening weakness, coughing, and SOB. Symptoms started 3-4days ago. No previous episodes like this. No sick contacts. No fever/NS Allergies and Home Medications Allergies Coded Allergies: lisinopril (Unverified Allergy, Unknown, 11/17/17) Home Medications Aspirin 81 Mg Tablet.dr, 81 MG PO DAILY, (Reported) Carvedilol 25 Mg Tablet, 12.5 MG PO BID, (Reported) TAKES 1/2 (25MG) TABLET Digoxin 125 Mcg Tablet, 125 MCG PO DAILY, (Reported) Furosemide 20 Mg Tablet, 20 MG PO 0800,1500, (Reported) Losartan Potassium 50 Mg Tablet, 50 MG PO DAILY, (Reported) Spironolactone 25 Mg Tablet, 25 MG PO DAILY, (Reported) Past Yxhvupr-Qwqznh-Jncpyg Hx Past Med/Social Hx: Reviewed Nursing Past Med/Soc Hx Patient Social History Alcohol Use: Rarely Uses Alcohol Beverage of Choice: Beer Recreational Drug Use: No Smoking Status: Current Everyday Smoker Type Used: Cigarettes 2nd Hand Smoke Exposure: Yes Recent Foreign Travel: No Contact w/Someone Who Travel: No Recent Infectious Disease Expo: No Recent Hopitalizations: No Immunizations Up To Date Date of Pneumonia Vaccine: Mar 07, 2015 Date of Influenza Vaccine: Mar 07, 2018 Seasonal Allergies Seasonal Allergies: No Past Medical History Surgeries: Yes Abdominal, Cardiac, Vascular Surgery (abdominal aortic aneurysm repair) Respiratory: Yes COPD Aneurysm, Atrial Fibrillation, Cardiomyopathy, Coronary Artery Disease, Deep Vein Thrombosis, Hypertension Neurological: No Genitourinary: No Gastrointestinal: No Musculoskeletal: No Endocrine: No HEENT: No Cancer: No Psychosocial: No Integumentary: No Blood Disorders: No Adverse Reaction/Blood Tranf: No Family Medical History Reviewed Nursing Family Hx No Pertinent Family Hx Review of Systems Time Seen by Provider: 05:54 Constitutional: Weakness, Malaise; No: Fever, Chills, Sweats, Other Eyes: No: Pain, Vision change, Conjunctivae inflammation, Eyelid inflammation, Other, Redness Respiratory: Cough, Dry, Shortness of breath, SOB with excertion Gastrointestinal: No: Nausea, Vomiting, Diarrhea Musculoskeletal: back pain; No: arm pain Skin: No: Rash, Lesions, Jaundice, Bruising Neurological: No: Change in speech, Confusion, Seizures Sepsis Event Evaluation Height, Weight, BMI Height: 5'6.00" Weight: 165lbs. 0.0oz. 74.604800im; 26.6 BMI Method:Stated Exam Exam Vital Signs Date Time Temp Pulse Resp B/P (MAP) Pulse Ox O2 Delivery O2 Flow Rate FiO2 08/04/18 04:00 95 Room Air 08/04/18 04:00 97.9 72 18 137/72 (93) 97 Room Air 08/04/18 03:07 Room Air 08/04/18 00:59 86 08/03/18 23:05 98.6 65 20 140/80 (100) 96 Room Air 08/03/18 23:05 96 Room Air 08/03/18 20:50 96 Room Air 08/03/18 20:40 Room Air 08/03/18 20:00 96 Room Air 08/03/18 20:00 98.5 80 15 142/98 (113) 96 Room Air 08/03/18 19:00 88 08/03/18 18:00 74 23 131/74 (93) 94 Room Air 08/03/18 17:35 77 96 21 08/03/18 17:00 75 28 128/82 (97) 89 Room Air 08/03/18 16:00 79 47 116/84 (95) 97 Room Air 08/03/18 16:00 92 Room Air 08/03/18 15:00 80 133/111 (118) 98 Room Air 08/03/18 14:15 80 12 132/115 (121) 97 Room Air 08/03/18 14:00 77 25 138/82 (100) 97 Room Air 08/03/18 13:54 95 Room Air 08/03/18 13:45 80 20 154/55 (88) 91 Room Air 08/03/18 13:30 78 146/71 (96) Room Air 08/03/18 13:15 76 43 144/118 (127) Room Air 08/03/18 13:06 80 08/03/18 12:40 77 23 134/92 (106) 93 08/03/18 09:50 99.9 78 23 130/101 (111) 93 I & O 08/04/18 07:00 Intake Total 850 ml Output Total 1000 ml Balance -150 ml Height & Weight Height: 5'6.00" Weight: 165lbs. 0.0oz. 74.273557lc; 26.6 BMI Method:Stated General Appearance: No Apparent Distress, Chronically ill HEENT: Moist Mucous Membranes; No Scleral Icterus (L), No Scleral Icterus (R) Neck: Normal Inspection, Supple Respiratory: Lungs Clear, No Accessory Muscle Use, No Respiratory Distress Cardiovascular: Regular Rate, Rhythm, No Murmur, Normal Peripheral Pulses Capillary Refill: Less Than 3 Seconds Extremity: Normal Capillary Refill, Non Tender, No Calf Tenderness, Pedal Edema (trace) Neurologic/Psychiatric: Alert, Oriented x3 (but poor insight), No Motor/ Sensory Deficits, Normal Mood/Affect Skin: Normal Color, Warm/Dry Results Lab Laboratory Tests 08/03/18 10:20 08/04/18 03:40 Assessment/Plan Assessment/Plan COPDAE - -Tobacco use -Oxygen -Will follow as an out patient [facility]FAE -Lasix, spironolactone Hypokalemia -replace Afib - Controlled -Eliquis -Cardiology is following CAD CKD -Following Tobacco hx -Education MARCUS GROSSMAN DO Aug 04, 2018 04:45
[2018-08-04] MEDS: POTASSIUM CL 10MEQ/50ML IVPB 50 ML IV SCH ×5 (06:36→10:57)
[2018-08-04 07:40] VITALS: BP 157/81
--- NOTE | 2018-08-04 07:46 | Progress Note-Hospitalist ---
Subjective HPI/CC On Admission Date Seen by Provider: Aug 04, 2018 Time Seen by Provider: 07:40 Pt is an 83yoCM with a PMH of CHF, PAD, CAD who presented to the ER due to weakness, coughing, and SOB. He states his symptoms started a few days ago and he thought he had the flu. He denies any fevers though or sick contacts. He has had some swelling of his legs though. He otherwise is unable to provide me much history. He believes he has had a previous cardiac work up at [facility] but he's not for sure if that's correct and he doesn't know what was done. He also thinks he had an CT 4-5 years ago but is unsure about that as well. Subjective/Events-last exam Pt reports feeling a little better. I am unsure of his level of insight in to his health problems. We reviewed our discussion from yesterday and the medical records we had received and he seemed unaware of any of his medical problems despite conversations with myself and Dr Sidhu yesterday. We discussed his heart failure and current treatment plan. He seems to understand it at this time. Objective Exam Vital Signs Vital Signs Date Time Temp Pulse Resp B/P (MAP) Pulse Ox O2 Delivery O2 Flow Rate FiO2 08/04/18 12:00 Room Air 08/04/18 12:00 97.5 80 18 146/76 (99) 100 08/03/18 17:35 21 Capillary Refill : Less Than 3 Seconds General Appearance: No Apparent Distress, Chronically ill HEENT: Moist Mucous Membranes; No Scleral Icterus (L), No Scleral Icterus (R) Neck: Normal Inspection, Supple Respiratory: Lungs Clear, No Accessory Muscle Use, No Respiratory Distress Cardiovascular: Regular Rate, Rhythm, No Murmur, Normal Peripheral Pulses Gastrointestinal: Normal Bowel Sounds, Non Tender, Soft Extremity: Normal Capillary Refill, Non Tender, No Calf Tenderness, Pedal Edema (trace) Neurologic/Psychiatric: Alert, Oriented x3 (but poor insight), No Motor/ Sensory Deficits, Normal Mood/Affect Skin: Normal Color, Warm/Dry Results/Procedures Lab Laboratory Tests 08/04/18 03:40 Patient resulted labs reviewed. Imaging: Reviewed Imaging Report Diagnosis/Problems Diagnosis/Problems (1) CHF exacerbation Status: Acute Assessment & Plan: Outside echo from 06/15/18 reveals EF of 25%, severe mitral regurg and moderate tricuspid regurg and pulmonary HTN with a PA pressure of 63 Continue on home ARB, BB, spirolactone IV Lasix Cardiology consulted, appreciate recs Qualifiers: Heart failure type: systolic Qualified Codes: I50.23 - Acute on chronic systolic (congestive) heart failure (2) COPD (chronic obstructive pulmonary disease) Status: Chronic Assessment & Plan: Dr Smith consulted, appreciate recs Advair MAT Protocol Qualifiers: COPD type: unspecified COPD Qualified Codes: J44.9 - Chronic obstructive pulmonary disease, unspecified (3) Atrial fibrillation Status: Chronic Assessment & Plan: Continue Coreg Rate controlled Continue Eliquis Qualifiers: Atrial fibrillation type: chronic Qualified Codes: I48.2 - Chronic atrial fibrillation (4) CAD (coronary artery disease) Status: Chronic Assessment & Plan: Appears to have had previous intervention at [facility] Cardiology consulted, appreciate recs Continue ASA Qualifiers: Coronary Disease-Associated Artery/Lesion type: [place] artery [place] vs. transplanted heart: [place] heart Associated angina: without angina Qualified Codes: I25.10 - Atherosclerotic heart disease of [place] coronary artery without angina pectoris (5) CKD (chronic kidney disease) Status: Chronic Assessment & Plan: Reviewed records form recent admission at [place] in June for CHF Creatinine at baseline Qualifiers: Chronic kidney disease stage: stage 3 (moderate) Qualified Codes: N18.3 - Chronic kidney disease, stage 3 (moderate) (6) Transaminitis Assessment & Plan: Improving (7) Weakness Assessment & Plan: PT/OT (8) Memory changes Assessment & Plan: Will have speech therapy assess with cognitive evaluation Appears to have poor recall (9) Tobacco abuse Status: Chronic Assessment & Plan: Recommended cessation Patient education Clinical Quality Measures DVT/VTE Risk/Contraindication: Risk Factor Score Per Nursin RFS Level Per Nursing on Admit: 4+=Very High RELL DAN MD Aug 04, 2018 07:46
[2018-08-04] MEDS: APIXABAN 5 MG (ELIQUIS) TABLET PO SCH ×2 (08:12→21:19)
[2018-08-04] MEDS: CARVEDILOL 6.25 MG (COREG) TAB PO SCH (08:12)
[2018-08-04] MEDS: FUROSEMIDE 40 MG/4 ML INJ (LASIX) IVP SCH (08:12)
[2018-08-04] MEDS: SPIRONOLACTONE 25 MG (ALDACTONE) TAB PO SCH (08:13)
[2018-08-04] MEDS: ASPIRIN 81 MG CHEW (CHILDREN'S ASA) PO SCH (08:13)
[2018-08-04] MEDS ORDERED: LOSARTAN 25 MG (COZAAR) TAB PO SCH (09:00)
[2018-08-04] MEDS: RT-ADVAIR HFA 115/21 MCG PER PUFF IH SCH ×2 (09:00→20:45)
--- NOTE | 2018-08-04 09:06 | ST Cognitive Linguistic Eval ---
Speech Evaluation-General Medical Diagnosis CHF Onset Date: Aug 03, 2018 Therapy Diagnosis Therapy Diagnosis: Cognitive-Communicaton Precautions Precautions/Isolations: Standard Precautions Medical History Reviewed History: Yes Social History Current Living Status: Spouse Speech PLF-Current Status Prior Level of Function Patient lived at home with his and was independent for his daily needs. Subjective Patient was sitting on the side of the bed eating his breakfast when I entered the room. Language Eval: Auditory Comprehends Simple Yes/No Ques: Functional Follows 1-Step Commands: Functional Follows Complex Directions: Functional Follows General Conversations: Functional Language Eval: Verbal Language Completes Spontaneous Greeting: Functional Produces Auto, Serial Info: Functional Imitates Simple Words/Phrases: Functional Word Finding: Functional Requests Basic Needs: Functional States Basic Personal Info: Functional Expresses Complex Ideas: Functional Objective Cognitive Domain Attention: WNL Memory: WNL Problem Solving: Functional Executive Functions: WNL Objective Formal/Standardized Tests [facility] Cognitive/Communication Results Memory: Immediate 3/3, Delayed with verbal cues 3/3, Orientation: 5/5, Problem Solving: Simple 5/5, Complex 4/5, Auditory Processin/5 Oral Motor/Speech Production Within Functional Limits Impression Patient is a pleasant 83 year old man who was admitted to the ICU post ED visit due to SOB. Patient states he should have come in a week or so ago. He has a history of CHF, Renal Failure and COPD. Patient completed the evaluation without difficulty and is within functional limits for all areas. Skilled ST services are not recommended at this time. Speech-Plan Patient/Family Goals Patient/Family Goals: Patient plans on returning home with his upon hospital discharge. Treatment Plan Speech Therapy Treatment Plan: Discontinue ST Patient's cognitive status does not warrant skilled ST at this time. Treatment Duration: Aug 04, 2018 Frequency: 1 time per week Estimated Hrs Per Day: .25 hour per day Rehab Potential: Good Barriers to Learning: None identified Pt/Family Agrees to Plan: Yes Safety Risks/Education Teaching Recipient: Patient, Family Teaching Methods: Discussion Response to Teaching: Verbalize Understanding Education Topics Provided: Safety within his room. Time Speech Therapy Time In: 08:00 Speech Therapy Time Out: 08:15 Total Billed Time: 15 Billed Treatment Time 1YAMEL BETH[address] ST Aug 04, 2018 09:06
--- NOTE | 2018-08-04 09:17 | Progress Note-Cardiology ---
Cardiology SOAP Progress Note Subjective: No cp or palp or syncope Shortness of breath somewhat better Gen malaise and weakness Objective: I&O/Vital Signs 08/03/18 08/03/18 08/04/18 08/04/18 23:05 23:05 00:59 03:07 Temp 98.6 Pulse 65 86 Resp 20 B/P (MAP) 140/80 (100) Pulse Ox 96 96 O2 Delivery Room Air Room Air Room Air 08/04/18 08/04/18 08/04/18 08/04/18 04:00 04:00 07:00 07:40 Temp 97.9 97.2 Pulse 72 78 76 Resp 18 18 B/P (MAP) 137/72 (93) 157/81 (106) Pulse Ox 97 95 100 O2 Delivery Room Air Room Air Room Air 08/04/18 08/04/18 07:45 09:00 Pulse Ox 100 100 O2 Delivery Room Air Room Air 08/04/18 00:00 Intake Total 850 ml Output Total 1000 ml Balance -150 ml Weight (Pounds): 167 Weight (Ounces): 9.0 Weight (Calculated Kilograms): 76.141779 Constitutional: AAO x 3, well-developed, well-nourished Respiratory: No accessory muscle use; other (scattered rhonchi, prolonged exp) Cardiovascular: irregularly irregular, S1 and S2, systolic murmur (soft BHANU at card base) Gastrointestional: No tender; soft; No guarding, No rebound; audible bowel sounds Extremities: No clubbing, No cyanosis, No significant edema Neurologic/Psychiatric: oriented x 3, grossly intact, power is 5/5 both on sides Skin: No rash on exposed areas, No ulcerations on exposed areas Results/Procedures: Labs Laboratory Tests 08/03/18 10:20: White Blood Count 9.2, Red Blood Count 3.40L, Hemoglobin 12.2L, Hematocrit 36L, Mean Corpuscular Volume 107H, Mean Corpuscular Hemoglobin 36H, Mean Corpuscular Hemoglobin Concent 34, Red Cell Distribution Width 13.8, Platelet Count 140, Mean Platelet Volume 12.0H, Neutrophils (%) (Auto) 86H, Lymphocytes (%) (Auto) 9L, Monocytes (%) (Auto) 5, Eosinophils (%) (Auto) 1, Basophils (%) (Auto) 0, Neutrophils # (Auto) 7.8, Lymphocytes # (Auto) 0.8L, Monocytes # (Auto) 0.5, Eosinophils # (Auto) 0.1, Basophils # (Auto) 0.0, Sodium Level 144, Potassium Level 3.7, Chloride Level 103, Carbon Dioxide Level 26, Anion Gap 15H, Blood Urea Nitrogen 28H, Creatinine 1.49H, Estimat Glomerular Filtration Rate 45, BUN/ Creatinine Ratio 19, Glucose Level 181H, Calcium Level 8.9, Corrected Calcium 9.1, Magnesium Level 2.3, Total Bilirubin 1.2H, Aspartate Amino Transf (AST/SGOT ) 48H, Alanine Aminotransferase (ALT/SGPT) 37, Alkaline Phosphatase 55, Troponin I 0.115H, C-Reactive Protein High Sensitivity 6.18H, B-Type Natriuretic Peptide 2247.8H, Total Protein 6.5, Albumin 3.7, TSH [place] Testing 0.63, Digoxin Level 1.13 08/04/18 03:40: White Blood Count 7.1, Red Blood Count 3.45L, Hemoglobin 12.2L, Hematocrit 37L, Mean Corpuscular Volume 106H, Mean Corpuscular Hemoglobin 35H, Mean Corpuscular Hemoglobin Concent 33, Red Cell Distribution Width 13.9, Platelet Count 138, Mean Platelet Volume 11.4H, Neutrophils (%) (Auto) 78H, Lymphocytes (%) (Auto) 13, Monocytes (%) (Auto) 7, Eosinophils (%) (Auto) 1, Basophils (%) (Auto) 0, Neutrophils # (Auto) 5.5, Lymphocytes # (Auto) 0.9L, Monocytes # (Auto) 0.5, Eosinophils # (Auto) 0.1, Basophils # (Auto) 0.0, Sodium Level 142, Potassium Level 3.4L, Chloride Level 105, Carbon Dioxide Level 25, Anion Gap 12, Blood Urea Nitrogen 35H, Creatinine 1.36H, Estimat Glomerular Filtration Rate 50, BUN/ Creatinine Ratio 26, Glucose Level 105, Calcium Level 8.7, Corrected Calcium 9.0 , Magnesium Level 2.1, Total Bilirubin 0.8, Aspartate Amino Transf (AST/SGOT) 37H, Alanine Aminotransferase (ALT/SGPT) 31, Alkaline Phosphatase 48, B-Type Natriuretic Peptide 2336.1H, Total Protein 6.2L, Albumin 3.6 Microbiology 08/03/18 Influenza Types A,B Antigen (ANGE) - Final, Complete Laboratory Tests 08/03/18 10:20 08/04/18 03:40 A/P: Assessment: Shortness of breath, multifactorial (see below) 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 Arterial u/s of November 2017: moderate stenosis in the right SFA and the left common femoral artery; monophasic flow in the tibial vessels on the right side. There is slow monophasic flow in the left posterior tibial artery with absent flow in the dorsalis pedis on the left side Non-compliance. 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
[2018-08-04] MEDS ORDERED: KCL 20 MEQ TAB (K-DUR) PO NR (09:30)
[2018-08-04] MEDS ORDERED: LOSARTAN 25 MG (COZAAR) TAB PO NR (09:30)
[2018-08-04] MEDS ORDERED: NS IV 500 ML 500 ML ONE (10:54)
--- NOTE | 2018-08-04 11:00 | NUR ---
REPORT GIVEN TO BIRGIT ASHER ON 4TH MED[facility]. PATIENT BROUGHT DOWN TO 4TH FLOOR ROOM 406.
--- NOTE | 2018-08-04 11:12 | Physical Therapy Evaluation ---
PT Evaluation-General Medical Diagnosis Admission Date Aug 04, 2018 at 07:46 Medical Diagnosis: CHF Onset Date: Aug 03, 2018 Therapy Diagnosis Therapy Diagnosis: decreased mobility Height/Weight Height (Feet): 5 Height (Inches): 6.00 Weight (Pounds): 167 Weight (Ounces): 9.0 Precautions Precautions/Isolations: Standard Precautions Weight Bear Status Right Lower Extremity: Right Weight Bearing/Tolerated Left Lower Extremity: Left Weight Bearing/Tolerated Referral Physician: Dr. Irby Reason for Referral: Evaluation/Treatment Medical History Pertinent Medical History: Atrial Fib, COPD, HTN, Smoking, Thrombosis Additional Medical History abdominal aortic aneurysm repair Current History Pt presented to ER with c/o cough with sputum, SOA, and weakness for 2 wks Reviewed History: Yes Social History Home: Single Level Current Living Status: Spouse Entry Into Home: Ramp Prior/Core FIM Prior Level of Function Therapy Code Descriptions/Definitions Functional [place] Measure: 0=Not Assessed/NA 4=Minimal Assistance 1=Total Assistance 5=Supervision or Setup 2=Maximal Assistance 6=Modified [place] 3=Moderate Assistance 7=Complete [place] Therapy Quality Codes: 6 Independent with activity with or without an assistive device 5 Patient requires set up or clean up by helper. Patient completes activity by themselves 4 Supervision or touching assist (CGA). [place] provide cues , steadying assist 3 The helper provides less than half the effort to complete the activity 2 The helper provides more than half the effort to complete the activity 1 Dependent. The helper does all the effort to complete an activity 7 Patient refused to complete or attempt activity 9 The patient did not perform the activity before the current illness or injury 88 Not attempted due to Medical conditions or safety concerns Functional Abilities and Goals: Independent: Patient completed the activities by him/herself, with or without an assistive device, with no assistance from a helper. Needed Some Help: Patient needed partial assistance from another person to complete activities. Dependent: A helper completed the activities for the patient. Unknown: Not Applicable: Bed Mobility: 7 Transfers (B,C,W/C) (FIM): 7 Gait: 7 Indoor Mobility (Ambulation): Independent Stairs: Not [place] Prior Devices Use: None PT Evaluation-Current Subjective Pt is sitting in bed and agrees to PT. Pain Numeric Pain Scale: 3 Location: Right Location Body Site: Arm Pt/Family Goals Pt to return home with spouse, he is her caregiver. Objective Patient Orientation: Person, Place, Situation, Normal For Age Attachments: IV ROM/Strength ROM Lower Extremities WNL Strength Lower Extremities gross motor bilateral (4+/5) Integumentary/Posture Bowel Incontinence: No Bladder Incontinence: No Neuromuscular (Tone, Coordination, Reflexes) NT Sensory Vision: Functional Hearing: Functional Transfers Therapy Code Descriptions/Definitions Functional [place] Measure: 0=Not Assessed/NA 4=Minimal Assistance 1=Total Assistance 5=Supervision or Setup 2=Maximal Assistance 6=Modified [place] 3=Moderate Assistance 7=Complete [place] Transfers (B, C, W/C) (FIM): 7 Scootin Sit to/from Stand: 7 Gait Mode of Locomotion: Walk Anticipated Mode of Locomotion: Walk Gait (FIM): 7 Distance (FIM): 3=150 ft Distance: 150' Gait Level of Assist: 7 Gait Persons Needed: 1 Gait Assistive Device: None Balance Sitting Static: Good Sitting Dynamic: Good Standing Static: Good Standing Dynamic: Good Assessment/Needs Pt was able to indep perform sit<>stand from EOB to standing. Pt requested not to use FWW as he does not normally use one. Pt was able to amb indep 150' with good gait speed and SPT only assisted with IV pole. Pt returned to room and is in recliner with all needs met. Pt reports he just doesn't have the endurance that he normally does. PT will not be picking up patient for skilled services as pt is already very indep. Rehab Potential: Good Post Rehab Potential-Barriers: co-morbidities, lifestyle habits PT Plan Problem List Problem List: Activity Tolerance Treatment/Plan Treatment Plan: Discontinue PT Treatment Plan: Other Treatment Duration: Aug 04, 2018 Frequency: Estimated Hrs Per Day: Other Patient and/or Family Agrees t: Yes PT is not picking pt up on skilled services. Safety Risks/Education Patient Education: Transfer Techniques, Correct Positioning, Safety Issues Teaching Recipient: Patient Teaching Methods: Demonstration, Discussion Response to Teaching: Verbalize Understanding, Return Demonstration Discharge Recommendations Therapy D/C Recommendations: Home w/ Family Support, Home Independently Time/GCodes Time In: 1010 Time Out: 1022 Total Billed Treatment Time: 12 Total Billed Treatment 1 visit EVL 12 min DAWOOD WILSON PT Aug 04, 2018 11:12
[2018-08-04 12:00] VITALS: BP 146/76
--- NOTE | 2018-08-04 15:44 | Occupational Therapy Eval ---
OT Evaluation-General/PLF Medical Diagnosis Admission Date Aug 04, 2018 at 07:46 Medical Diagnosis: CHF exacerbation Onset Date: Aug 03, 2018 Therapy Diagnosis Therapy Diagnosis: Weakness Height/Weight Height (Feet): 5 Height (Inches): 6.00 Weight (Pounds): 167 Weight (Ounces): 9.0 Precautions Precautions/Isolations: Standard Precautions Safety Interventions: None Weight Bear Status Weight Bearing Restriction: Weight Bearing/Tolerated Referral Physician: Dr. Irby Referral Reason: Activity Tolerance, Self Care, Evaluation/Treatment, Strengthening/ROM Medical History Pertinent Medical History: Atrial Fib, CAD, COPD, HTN, Smoking, Thrombosis Additional Medical History PAD, Abdominal surgery, DVT Current History Pt. came to ER with SOB. Reviewed History: Yes Social History Home: Single Level Current Living Status: Spouse Entry Into Home: Ramp Pt. has ramp in back of house with one small step, and 4-5 steps in front of the house. ADL-Prior Level of Function Therapy Code Descriptions/Definitions Functional [place] Measure: 0=Not Assessed/NA 4=Minimal Assistance 1=Total Assistance 5=Supervision or Setup 2=Maximal Assistance 6=Modified [place] 3=Moderate Assistance 7=Complete [place] Therapy Quality Codes: 6 Independent with activity with or without an assistive device 5 Patient requires set up or clean up by helper. Patient completes activity by themselves 4 Supervision or touching assist (CGA). [place] provide cues , steadying assist 3 The helper provides less than half the effort to complete the activity 2 The helper provides more than half the effort to complete the activity 1 Dependent. The helper does all the effort to complete an activity 7 Patient refused to complete or attempt activity 9 The patient did not perform the activity before the current illness or injury 88 Not attempted due to Medical conditions or safety concerns Functional Abilities and Goals: Independent: Patient completed the activities by him/herself, with or without an assistive device, with no assistance from a helper. Needed Some Help: Patient needed partial assistance from another person to complete activities. Dependent: A helper completed the activities for the patient. Unknown: Not Applicable: ADL PLOF Comments Pt. states that he was independent with all basic self care skills. States that his spouse is not in good health. Self Care: Independent Functional Cognition: Independent DME/Equipment Comments Pt. states that he has a cane, but that he does not always use it. Drive Self: Yes OT Current Status Subjective No pain reported. Appearance Pt. up on side of bed. At firsts, agrees to shower. However, changes his mind and states that he really just needs to lay down. Mental Status/Objective Patient Orientation: Person, Place, Time, Situation Current Upper Extremity ROM WFL Upper Extremity Strength WFL ADL-Treatment Therapy Code Descriptions/Definitions Functional [place] Measure: 0=Not Assessed/NA 4=Minimal Assistance 1=Total Assistance 5=Supervision or Setup 2=Maximal Assistance 6=Modified [place] 3=Moderate Assistance 7=Complete [place] Therapy Quality Codes: 6 Independent with activity with or without an assistive device 5 Patient requires set up or clean up by helper. Patient completes activity by themselves 4 Supervision or touching assist (CGA). [place] provide cues , steadying assist 3 The helper provides less than half the effort to complete the activity 2 The helper provides more than half the effort to complete the activity 1 Dependent. The helper does all the effort to complete an activity 7 Patient refused to complete or attempt activity 9 The patient did not perform the activity before the current illness or injury 88 Not attempted due to Medical conditions or safety concerns Lower Body Dressing (FIM): 5 (Pt. is able to bring bilateral feet up to him and doff slipper socks. Pt. is able to put them back on as well.) Transfers (B, C, W/C) (FIM): 5 (Pt. is able to stand up and take steps toward HOB. Pt is able to sit and lay back down.) Education OT Patient Education: Correct positioning, Modified ADL techniques, Progress toward Goal/Update tx plan, Purpose of tx/functional activities, Reviewed precautions, Rehab process, Transfer techniques Teaching Recipient: Patient Teaching Methods: Demonstration, Discussion Response to Teaching: Verbalize Understanding, Return Demonstration OT Short Term Goals Short Term Goals 1=Demonstrate adherence to instructed precautions during ADL tasks. 2=Patient will verbalize/demonstrate understanding of assistive devices/ modifications for ADL. 3=Patient will improve strength/tolerance for activity to enable patient to perform ADL's. OT Assembler Unit Goals Longterm Goals Time Frame: Aug 18, 2018 Eating (FIM): 6 Grooming(FIM): 6 Bathing(FIM): 5 Upper Body Dressing(FIM): 6 Lower Body Dressing(FIM): 6 Toileting(FIM): 6 Transfers (B,C,W/C) (FIM): 6 Toilet/Commode Transfer(FIM): 6 Shower Transfer(FIM): 5 Additional Goals: 1-Demonstrate ADL Tasks, 2-Verbalize Understanding, 3- ImproveStrength/Freda 1=Demonstrate adherence to instructed precautions during ADL tasks. 2=Patient will verbalize/demonstrate understanding of assistive devices/ modifications for ADL. 3=Patient will improve strength/tolerance for activity to enable patient to perform ADL's. OT Education/Plan Problem List/Assessment Assessment: Decreased Activ Tolerance, Impaired I ADL's, Impaired Self-Care Skills Discharge Recommendations Plan/Recommendations: Continue POC Therapy D/C Recommendations: Home w/ Family Support, Occupational Therapy Home Care Treatment Plan/Plan of Care Treatment,Training & Education: Yes Patient would benefit from OT for education, treatment and training to promote independence in ADL's, mobility, safety and/or upper extremity function for ADL' s. Plan of Care: ADL Retraining, Functional Mobility, UE Funct Exercise/Act Treatment Duration: Aug 18, 2018 Frequency: 5 times per week Estimated Hrs Per Day: .25 hour per day Agreement: Yes Rehab Potential: Good Time/GCodes Start Time: 11:25 Stop Time: 11:40 Total Time Billed (hr/min): 15 Billed Treatment Time 1, MARC MCGARRY OT Aug 04, 2018 15:44
[2018-08-04 16:28] VITALS: BP 135/76
[2018-08-04 19:43] VITALS: BP 140/92
[2018-08-04] MEDS: CARVEDILOL 12.5 MG (COREG) TABLET PO SCH (21:20)
[2018-08-05] VITALS (7 sets, daily range): BP systolic 125–146; BP diastolic 69–84
[2018-08-05] MEDS: RT-ALBUTEROL/IPRATROPIUM 3 ML (DUONEB) VIAL INH SCH ×3 (02:54→19:41)
[2018-08-05] MEDS: CATHETER FLUSH 10 ML SYR IV SCH ×3 (05:47→20:44)
[2018-08-05 06:13] LABS: BASOPHILS % (AUTO) 0 % (0-10); EOSINOPHILS # (AUTO) 0.2 10^3/uL (0.0-0.3); EOSINOPHILS % (AUTO) 2 % (0-10); HEMATOCRIT 39 % (40-54); HEMOGLOBIN 12.8 G/DL (13.3-17.7); LYMPHOCYTES # (AUTO) 1.3 X 10^3 (1.0-4.0); LYMPHOCYTES % (AUTO) 13 % (12-44); MEAN CORPUSCULAR HEMOGLOBIN 34 PG (25-34); MEAN CORPUSCULAR HGB CONC 33 G/DL (32-36); MEAN CORPUSCULAR VOLUME 105 FL (80-99); MEAN PLATELET VOLUME 11.8 FL (7.4-10.4); MONOCYTES # (AUTO) 0.8 X 10^3 (0.0-1.0); MONOCYTES % (AUTO) 8 % (0-12); NEUTROPHILS # (AUTO) 7.8 X 10^3 (1.8-7.8); NEUTROPHILS % (AUTO) 78 % (42-75); PLATELET COUNT 167 10^3/uL (130-400); RED CELL DISTRIBUTION WIDTH 13.7 % (10.0-14.5); WHITE BLOOD COUNT 10.1 10^3/uL (4.3-11.0)
[2018-08-05 06:18] LABS: SMEAR SCAN COMMENT YES
[2018-08-05 06:33] LABS: CALCIUM 8.9 MG/DL (8.5-10.1); CREATININE SERUM 1.35 MG/DL (0.60-1.30); MAGNESIUM 2.2 MG/DL (1.8-2.4)
--- NOTE | 2018-08-05 06:38 | Pulmonary Progress Note ---
Subjective Time Seen by a Provider: 07:50 Subjective/Events-last exam NO complications noted Sepsis Event Evaluation Height, Weight, BMI Height: 5'6.00" Weight: 169lbs. 9.0oz. 76.215567mq; 26.6 BMI Method:Stated Exam Exam Vital Signs Date Time Temp Pulse Resp B/P (MAP) Pulse Ox O2 Delivery O2 Flow Rate FiO2 08/05/18 04:00 Room Air 08/05/18 03:55 98.9 87 18 146/82 (103) 95 Room Air 08/05/18 02:54 90 Room Air 08/05/18 01:00 68 08/05/18 00:05 Room Air 08/05/18 00:00 98.6 84 18 132/79 (96) 96 Room Air 08/04/18 23:21 96 08/04/18 21:00 Room Air 08/04/18 20:58 98 Room Air 08/04/18 20:45 96 Room Air 08/04/18 20:00 Room Air 08/04/18 19:43 98.3 67 18 140/92 (108) 97 Room Air 08/04/18 16:28 97.2 83 18 135/76 (95) 98 Room Air 08/04/18 16:00 Room Air 08/04/18 12:00 Room Air 08/04/18 12:00 97.5 80 18 146/76 (99) 100 Room Air 08/04/18 09:18 Room Air 08/04/18 09:00 100 Room Air 08/04/18 07:45 100 Room Air 08/04/18 07:40 97.2 76 18 157/81 (106) 100 Room Air 08/04/18 07:00 78 I & O 08/05/18 07:00 Intake Total 2200 ml Output Total 1675 ml Balance 525 ml Height & Weight Height: 5'6.00" Weight: 169lbs. 9.0oz. 76.775348bw; 26.6 BMI Method:Stated General Appearance: No Apparent Distress, Chronically ill HEENT: Moist Mucous Membranes; No Scleral Icterus (L), No Scleral Icterus (R) Neck: Normal Inspection, Supple Respiratory: Lungs Clear, No Accessory Muscle Use, No Respiratory Distress Cardiovascular: Regular Rate, Rhythm, No Murmur, Normal Peripheral Pulses Capillary Refill: Less Than 3 Seconds Extremity: Normal Capillary Refill, Non Tender, No Calf Tenderness, Pedal Edema (trace) Neurologic/Psychiatric: Alert, Oriented x3 (but poor insight), No Motor/ Sensory Deficits, Normal Mood/Affect Skin: Normal Color, Warm/Dry Results Lab Laboratory Tests 08/03/18 10:20 08/04/18 03:40 08/05/18 05:30 Assessment/Plan Assessment/Plan COPDAE - -Tobacco use -education -Check ambulatory oxy test -Oxygen -- pt is on RA currently -Will follow as an out patient [facility] -Lasix, spironolactone Afib - Controlled -Eliquis -Cardiology is following CAD CKD -Following Tobacco hx -Education MARCUS GROSSMAN DO Aug 05, 2018 06:38
[2018-08-05] MEDS: APIXABAN 5 MG (ELIQUIS) TABLET PO SCH ×2 (09:04→20:44)
[2018-08-05] MEDS: CARVEDILOL 12.5 MG (COREG) TABLET PO SCH ×2 (09:04→20:44)
[2018-08-05] MEDS: LOSARTAN 50 MG (COZAAR) TAB PO SCH (09:05)
[2018-08-05] MEDS: SPIRONOLACTONE 25 MG (ALDACTONE) TAB PO SCH (09:05)
[2018-08-05] MEDS: ASPIRIN 81 MG CHEW (CHILDREN'S ASA) PO SCH (09:06)
[2018-08-05] MEDS: FUROSEMIDE 40 MG/4 ML INJ (LASIX) IVP SCH ×2 (09:07→09:11)
[2018-08-05] MEDS ORDERED: FUROSEMIDE 20 MG (LASIX) TAB PO NR (09:30)
[2018-08-05] MEDS: RT-ADVAIR HFA 115/21 MCG PER PUFF IH SCH ×2 (09:34→19:42)
--- NOTE | 2018-08-05 10:04 | Progress Note-Cardiology ---
Cardiology SOAP Progress Note Subjective: Sitting up in bed. States his cough has been more productive today. Feels SOB is better, but still dyspneic with strenuous exertion. No c/o CP, palpitations , syncope or near syncope. No c/o LE swelling. Objective: I&O/Vital Signs 08/05/18 08/05/18 08/05/18 08/05/18 03:55 04:00 07:00 08:00 Temp 98.9 97.2 Pulse 87 89 86 Resp 18 18 B/P (MAP) 146/82 (103) 134/84 (101) Pulse Ox 95 97 O2 Delivery Room Air Room Air Room Air 08/05/18 08/05/18 08/05/18 08/05/18 08:10 08:10 09:32 12:00 Temp 97.0 Pulse 91 Resp 18 B/P (MAP) 137/77 (97) Pulse Ox 98 98 O2 Delivery Room Air Room Air Room Air Room Air 08/05/18 13:00 Pulse 88 08/05/18 00:00 Intake Total 1300 ml Output Total 825 ml Balance 475 ml Weight (Pounds): 169 Weight (Ounces): 9.0 Weight (Calculated Kilograms): 76.495640 Constitutional: AAO x 3, well-developed, well-nourished Respiratory: No accessory muscle use; other (scattered rhonchi, prolonged exp) Cardiovascular: irregularly irregular, S1 and S2, systolic murmur (soft BHANU at card base) Gastrointestional: No tender; soft; No guarding, No rebound; audible bowel sounds Extremities: No clubbing, No cyanosis, No significant edema Neurologic/Psychiatric: oriented x 3, grossly intact, power is 5/5 both on sides Skin: No rash on exposed areas, No ulcerations on exposed areas Results/Procedures: Labs Laboratory Tests 08/05/18 05:30: White Blood Count 10.1, Red Blood Count 3.73L, Hemoglobin 12.8L, Hematocrit 39L , Mean Corpuscular Volume 105H, Mean Corpuscular Hemoglobin 34, Mean Corpuscular Hemoglobin Concent 33, Red Cell Distribution Width 13.7, Platelet Count 167, Mean Platelet Volume 11.8H, Neutrophils (%) (Auto) 78H, Lymphocytes ( %) (Auto) 13, Monocytes (%) (Auto) 8, Eosinophils (%) (Auto) 2, Basophils (%) ( Auto) 0, Neutrophils # (Auto) 7.8, Lymphocytes # (Auto) 1.3, Monocytes # (Auto) 0.8, Eosinophils # (Auto) 0.2, Basophils # (Auto) 0.0, Sodium Level 140, Potassium Level 4.0, Chloride Level 103, Carbon Dioxide Level 23, Anion Gap 14, Blood Urea Nitrogen 37H, Creatinine 1.35H, Estimat Glomerular Filtration Rate 51 , BUN/Creatinine Ratio 27, Glucose Level 109H, Calcium Level 8.9, Magnesium Level 2.2, B-Type Natriuretic Peptide 2324.6H, Smear Scan YES Microbiology 08/03/18 Gram Stain - Final, Complete 08/03/18 Sputum Culture - Final, Complete Usual upper respiratory max A/P: Assessment: Shortness of breath, multifactorial (see below) 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 Arterial u/s of November 2017: moderate stenosis in the right SFA and the left common femoral artery; monophasic flow in the tibial vessels on the right side. There is slow monophasic flow in the left posterior tibial artery with absent flow in the dorsalis pedis on the left side Non-compliance. (He states he has not followed up with his family doctor or his tool adjuster for years) Plan: * Complex management due to multiple comorbidities * Continue BB and ARB * Replenish K * Monitor labs * He wishes to be managed conservatively only at this time * Continue ASA and OAC * Systolic CHF with continued dyspnea - add Metolazone to the regimen and adjust potassium replacement Physician Assessment Physician Assessment Shortness of breath modestly improved No cp or palp or syncope Lungs: diminished bs at bases Cor: irreg Ext: no c/c/e A&R * As documented in our note above that I updated (italics) and as noted below * Currently, he desires conservative therapy only * Because heart failure is not well compensated, we have added metolazone to the regimen * Monitor labs closely * We have discussed with him the potential etiologies of his dilated cm. Further imaging studies would be needed to narrow down the causes. He understands but is not willing to undergo cath or MPI. States will consider that as an outpatient SHIRAZ ALMANZAR Aug 05, 2018 10:04 BRAD MATTHEWS MD FACP FAC CCDS Aug 05, 2018 15:35
--- NOTE | 2018-08-05 10:34 | Progress Note-Hospitalist ---
Subjective HPI/CC On Admission Date Seen by Provider: Aug 05, 2018 Time Seen by Provider: 10:28 Pt is an 83yoCM with a PMH of CHF, PAD, CAD who presented to the ER due to weakness, coughing, and SOB. He states his symptoms started a few days ago and he thought he had the flu. He denies any fevers though or sick contacts. He has had some swelling of his legs though. He otherwise is unable to provide me much history. He believes he has had a previous cardiac work up at [facility] but he's not for sure if that's correct and he doesn't know what was done. He also thinks he had an WI 4-5 years ago but is unsure about that as well. Subjective/Events-last exam Pt reports still havign significant coughing with sputum production and PULIDO. Discussed again his results from the echo and he does not appear to recall our conversation previously. Also discussed his conversations with Dr Sidhu and he does not seem to recall this either. He states he would agree to intervention and even surgery if necessary. Objective Exam Vital Signs Vital Signs Date Time Temp Pulse Resp B/P (MAP) Pulse Ox O2 Delivery O2 Flow Rate FiO2 08/05/18 09:32 98 Room Air 08/05/18 08:00 97.2 86 18 134/84 (101) 08/03/18 17:35 21 Capillary Refill : Less Than 3 Seconds General Appearance: No Apparent Distress, Chronically ill Respiratory: Lungs Clear, No Accessory Muscle Use, No Respiratory Distress Cardiovascular: No Murmur, Normal Peripheral Pulses, Irregularly Irregular Gastrointestinal: Normal Bowel Sounds, Non Tender, Soft Neurologic/Psychiatric: Alert, No Motor/Sensory Deficits, Normal Mood/Affect, Other (oriented to person and place, very poor recall) Skin: Normal Color, Warm/Dry Results/Procedures Lab Laboratory Tests 08/05/18 05:30 Patient resulted labs reviewed. Imaging: Reviewed Imaging Report Assessment/Plan Assessment and Plan Assess & Plan/Chief Complaint CHF Exacerbation Diagnosis/Problems Diagnosis/Problems (1) CHF exacerbation Status: Acute Assessment & Plan: Outside echo from 06/15/18 reveals EF of 25%, severe mitral regurg and moderate tricuspid regurg and pulmonary HTN with a PA pressure of 63 Current echo here shows EF 30% and similar valvular abnormalities Continue on home ARB, BB, spirolactone Continue Lasix orally BNP remains elevated though clinically improving and on room air with less edema and no JVD Cardiology consulted, appreciate recs Qualifiers: Heart failure type: systolic Qualified Codes: I50.23 - Acute on chronic systolic (congestive) heart failure (2) COPD (chronic obstructive pulmonary disease) Status: Chronic Assessment & Plan: Dr Smith consulted, appreciate recs Advair MAT Protocol Qualifiers: COPD type: unspecified COPD Qualified Codes: J44.9 - Chronic obstructive pulmonary disease, unspecified (3) Atrial fibrillation Status: Chronic Assessment & Plan: Continue Coreg Rate controlled Continue Eliquis Qualifiers: Atrial fibrillation type: chronic Qualified Codes: I48.2 - Chronic atrial fibrillation (4) CAD (coronary artery disease) Status: Chronic Assessment & Plan: Appears to have had previous intervention at [facility] Cardiology consulted, appreciate recs Continue ASA Qualifiers: Coronary Disease-Associated Artery/Lesion type: [place] artery [place] vs. transplanted heart: [place] heart Associated angina: without angina Qualified Codes: I25.10 - Atherosclerotic heart disease of [place] coronary artery without angina pectoris (5) CKD (chronic kidney disease) Status: Chronic Assessment & Plan: Reviewed records form recent admission at [place] in June for CHF Creatinine at baseline Qualifiers: Chronic kidney disease stage: stage 3 (moderate) Qualified Codes: N18.3 - Chronic kidney disease, stage 3 (moderate) (6) Transaminitis Assessment & Plan: Improving (7) Weakness Assessment & Plan: PT/OT (8) Memory changes Assessment & Plan: Speech therapy assess with cognitive evaluation and deemed no significant deficit Discussed with ST and they will reassess today Pt remains a poor historian with poor short term memory I am unsure of his ability to retain new information executive services administrator consulted (9) Tobacco abuse Status: Chronic Assessment & Plan: Recommended cessation Patient education Clinical Quality Measures DVT/VTE Risk/Contraindication: Risk Factor Score Per Nursin RFS Level Per Nursing on Admit: 4+=Very High RELL DAN MD Aug 05, 2018 10:34
--- NOTE | 2018-08-05 11:54 | Occ Therapy Progress Note ---
Therapy Progress Note Attempted therapy at 1119. Pt returning to bed from restroom without assistance. Pt states he is up ad machelle in room and is completing ADLs and transfers without assist. Pt states he took a shower independently yesterday and was able to dress himself. Pt declined therapy at this time, states he hopes to go home today. No questions or concerns. Pt sitting EOB with needs met after session. 1, visit SYLWIA TREVIÑO OT Aug 05, 2018 11:54
[2018-08-05] MEDS ORDERED: KCL 20 MEQ TAB (K-DUR) PO NR (13:00)
[2018-08-05] MEDS ORDERED: METOLAZONE 2.5 MG (ZAROXOLYN) TAB PO NR (13:00)
--- NOTE | 2018-08-05 14:15 | Speech Therapy Progress Note ---
Therapy Progress Note The patient's physician expressed her concerns regarding his cognitive status. The patient demonstrated good recall with his medical issues and conversed with his present without difficulty. The patient is not recommended for skilled ST services at this time. MARCIE CARY Aug 05, 2018 14:15
[2018-08-05] MEDS: FUROSEMIDE 40 MG/4 ML INJ (LASIX) IVP NR ×2 (15:16→15:55)
[2018-08-06] VITALS: BP 136/63
[2018-08-06 03:50] VITALS: BP 125/63
[2018-08-06 04:32] LABS: CREATININE SERUM 1.33 MG/DL (0.60-1.30); MAGNESIUM 2.1 MG/DL (1.8-2.4); POTASSIUM 3.7 MMOL/L (3.6-5.0)
[2018-08-06] MEDS: CATHETER FLUSH 10 ML SYR IV SCH (06:36)
--- NOTE | 2018-08-06 06:43 | Pulmonary Progress Note ---
Subjective Time Seen by a Provider: 06:41 Subjective/Events-last exam Pt is 95% on RA. No complications noted. Sepsis Event Evaluation Height, Weight, BMI Height: 5'6.00" Weight: 162lbs. 4.0oz. 73.980996fq; 26.6 BMI Method:Stated Exam Exam Vital Signs Date Time Temp Pulse Resp B/P (MAP) Pulse Ox O2 Delivery O2 Flow Rate FiO2 08/06/18 03:50 Room Air 08/06/18 03:50 98.3 67 16 125/63 (83) 95 Room Air 08/06/18 01:00 80 08/06/18 00:00 98.6 82 20 136/63 (87) 95 Room Air 08/06/18 00:00 Room Air 08/05/18 21:00 Room Air 08/05/18 20:19 98.5 60 18 125/69 (87) 97 Room Air 08/05/18 20:00 Room Air 08/05/18 19:35 98 Room Air 08/05/18 19:00 80 08/05/18 16:12 98.2 82 20 140/83 (102) 97 Room Air 08/05/18 16:00 Room Air 08/05/18 13:00 88 08/05/18 12:00 97.0 91 18 137/77 (97) 98 Room Air 08/05/18 12:00 Room Air 08/05/18 09:32 98 Room Air 08/05/18 09:32 72 98 08/05/18 08:10 Room Air 08/05/18 08:10 Room Air 08/05/18 08:00 97.2 86 18 134/84 (101) 97 Room Air 08/05/18 07:00 89 I & O 08/06/18 07:00 Intake Total 960 ml Output Total 4150 ml Balance -3190 ml Height & Weight Height: 5'6.00" Weight: 162lbs. 4.0oz. 73.298236qh; 26.6 BMI Method:Stated General Appearance: No Apparent Distress, Chronically ill Respiratory: Lungs Clear, No Accessory Muscle Use, No Respiratory Distress Cardiovascular: No Murmur, Normal Peripheral Pulses, Irregularly Irregular Capillary Refill: Less Than 3 Seconds Neurologic/Psychiatric: Alert, No Motor/Sensory Deficits, Normal Mood/Affect, Other (oriented to person and place, very poor recall) Skin: Normal Color, Warm/Dry Results Lab Laboratory Tests 08/05/18 05:30 08/06/18 03:45 Assessment/Plan Assessment/Plan COPDAE - -Tobacco use -education -Pt is 95% on RA -Will follow as an out patient CHFAE -Lasix, spironolactone Afib - Controlled -Eliquis -Cardiology is following CAD CKD -Following Tobacco hx -Education MARCUS GROSSMAN DO Aug 06, 2018 06:43
[2018-08-06] MEDS: RT-ALBUTEROL/IPRATROPIUM 3 ML (DUONEB) VIAL INH SCH (07:04)
[2018-08-06] MEDS: RT-ADVAIR HFA 115/21 MCG PER PUFF IH SCH (07:04)
[2018-08-06 08:00] VITALS: BP 130/70
[2018-08-06] MEDS: APIXABAN 5 MG (ELIQUIS) TABLET PO SCH (08:35)
[2018-08-06] MEDS: CARVEDILOL 12.5 MG (COREG) TABLET PO SCH (08:35)
[2018-08-06] MEDS: SPIRONOLACTONE 25 MG (ALDACTONE) TAB PO SCH (08:35)
[2018-08-06] MEDS: ASPIRIN 81 MG CHEW (CHILDREN'S ASA) PO SCH (08:35)
[2018-08-06] MEDS: LOSARTAN 50 MG (COZAAR) TAB PO SCH (08:35)
[2018-08-06] MEDS ORDERED: METOLAZONE 2.5 MG (ZAROXOLYN) TAB PO SCH (09:00)
[2018-08-06] MEDS ORDERED: METO2.5T PO (09:23)
[2018-08-06] MEDS ORDERED: FLUT12AE4 IH (09:23)
[2018-08-06] MEDS ORDERED: POTA-51 PO (09:23)
[2018-08-06] MEDS ORDERED: APIX5TAB PO (09:23)
--- NOTE | 2018-08-06 10:58 | Discharge Inst-Simple/Standard ---
Discharge Inst-Standard Discharge Medications New, Converted or Re-Newed RX: Transmitted to Pharmacy Patient Instructions/Follow Up Plan of Care/Instructions/FU: Please continue to take your medications as written. Please follow up with Dr Stinson in the next week and with Dr Sidhu as scheduled. Activity as Tolerated: Yes Discharge Diet: Low Sodium Diet, Cardiac Diet Return to The Hospital For: Shortness of breath, worsening leg swelling or over 5lb weight gain, chest pain, palpitations, if you feel you are getting worse. RELL DAN MD Aug 06, 2018 10:58
--- NOTE | 2018-08-06 11:05 | Discharge Inst-Simple/Standard ---
Discharge Inst-Standard Discharge Medications New, Converted or Re-Newed RX: Transmitted to Pharmacy Patient Instructions/Follow Up Plan of Care/Instructions/FU: Please continue to take your medications as written. Please follow up with your Primary Care Doctor in the next week and with Dr Sidhu on Wednesday. Activity as Tolerated: Yes Discharge Diet: Low Sodium Diet, Cardiac Diet Return to The Hospital For: Shortness of breath, chest pain, weight gain, confusion, blood in your stools, palpitations, if you feel you are getting worse. RELL DAN MD Aug 06, 2018 11:05
--- NOTE | 2018-08-06 11:06 | Discharge Summary-Hospitalist ---
Diagnosis/Chief Complaint Date of Admission Aug 04, 2018 at 07:46 Date of Discharge Discharge Date: Aug 06, 2018 Admission Diagnosis CHF exacerbation Discharge Diagnosis (1) CHF exacerbation Status: Acute Assessment & Plan: Outside echo from 06/15/18 reveals EF of 25%, severe mitral regurg and moderate tricuspid regurg and pulmonary HTN with a PA pressure of 63 Current echo here shows EF 30% and similar valvular abnormalities Continue on home ARB, BB, spirolactone Continue Lasix orally BNP remains elevated though clinically improving and on room air with less edema and no JVD Cardiology consulted, appreciate recs (2) COPD (chronic obstructive pulmonary disease) Status: Chronic Assessment & Plan: Dr Smith consulted, appreciate recs Advair MAT Protocol (3) Atrial fibrillation Status: Chronic Assessment & Plan: Continue Coreg Rate controlled Continue Eliquis (4) CAD (coronary artery disease) Status: Chronic Assessment & Plan: Appears to have had previous intervention at [facility] Cardiology consulted, appreciate recs Continue ASA (5) CKD (chronic kidney disease) Status: Chronic Assessment & Plan: Reviewed records form recent admission at [place] in June for CHF Creatinine at baseline (6) Transaminitis Assessment & Plan: Improving (7) Weakness Assessment & Plan: PT/OT (8) Memory changes Assessment & Plan: Speech therapy assess with cognitive evaluation and deemed no significant deficit Discussed with ST and they will reassess today Pt remains a poor historian with poor short term memory I am unsure of his ability to retain new information learning services coordinator consulted (9) Tobacco abuse Status: Chronic Assessment & Plan: Recommended cessation Patient education Discharge Summary Discharge Physical Exam Allergies: Coded Allergies: lisinopril (Unverified Allergy, Unknown, 11/17/17) Vitals & I&Os Vital Signs Date Time Temp Pulse Resp B/P (MAP) Pulse Ox O2 Delivery O2 Flow Rate FiO2 08/06/18 09:00 Room Air 08/06/18 08:00 96.8 84 20 130/70 (90) 97 08/03/18 17:35 21 General Appearance: No Apparent Distress, Chronically ill Respiratory: Lungs Clear, No Accessory Muscle Use, No Respiratory Distress Cardiovascular: No Murmur, Normal Peripheral Pulses, Irregularly Irregular Gastrointestinal: Normal Bowel Sounds, Non Tender, Soft Skin: Normal Color, Warm/Dry Neurologic/Psychiatric: Alert, No Motor/Sensory Deficits, Normal Mood/Affect, Other (oriented to person and place, very poor recall) Hospital Course Labs (last 24 hrs) Laboratory Tests 08/06/18 03:45: Sodium Level 138, Potassium Level 3.7, Chloride Level 100, Carbon Dioxide Level 26, Anion Gap 12, Blood Urea Nitrogen 33H, Creatinine 1.33H, Estimat Glomerular Filtration Rate 51, BUN/Creatinine Ratio 25, Glucose Level 95, Calcium Level 9.0 , Magnesium Level 2.1, B-Type Natriuretic Peptide 1329.6H Microbiology 08/03/18 Gram Stain - Final, Complete 08/03/18 Sputum Culture - Final, Complete Usual upper respiratory max Patient resulted labs reviewed. Pending Labs Laboratory Tests 08/06/18 03:45: Sodium Level 138, Potassium Level 3.7, Chloride Level 100, Carbon Dioxide Level 26, Anion Gap 12, Blood Urea Nitrogen 33, Creatinine 1.33, Estimat Glomerular Filtration Rate 51, BUN/Creatinine Ratio 25, Glucose Level 95, Calcium Level 9.0 , Magnesium Level 2.1, B-Type Natriuretic Peptide 1329.6 Imaging: Reviewed Imaging Report Discharge Home Medications: Active Scripts Active Potassium Chloride 20 Meq Tablet.er 20 Meq PO DAILY Reported Aspirin EC (Aspirin) 81 Mg Tablet.dr 81 Mg PO DAILY Digoxin 125 Mcg Tablet 125 Mcg PO DAILY Spironolactone 25 Mg Tablet 25 Mg PO DAILY Losartan Potassium 50 Mg Tablet 50 Mg PO DAILY Furosemide 20 Mg Tablet 20 Mg PO 0800,1500 Carvedilol 25 Mg Tablet 12.5 Mg PO BID TAKES 1/2 (25MG) TABLET Instructions to patient/family Please see electronic discharge instructions given to patient. Clinical Quality Measures DVT/VTE Risk/Contraindication: Risk Factor Score Per Nursin RFS Level Per Nursing on Admit: 4+=Very High Problem Qualifiers (1) CHF exacerbation: Heart failure type: systolic Qualified Codes: I50.23 - Acute on chronic systolic (congestive) heart failure (2) COPD (chronic obstructive pulmonary disease): COPD type: unspecified COPD Qualified Codes: J44.9 - Chronic obstructive pulmonary disease, unspecified (3) Atrial fibrillation: Atrial fibrillation type: chronic Qualified Codes: I48.2 - Chronic atrial fibrillation (4) CAD (coronary artery disease): Coronary Disease-Associated Artery/Lesion type: [place] artery [place] vs. transplanted heart: [place] heart Associated angina: without angina Qualified Codes: I25.10 - Atherosclerotic heart disease of [place] coronary artery without angina pectoris (5) CKD (chronic kidney disease): Chronic kidney disease stage: stage 3 (moderate) Qualified Codes: N18.3 - Chronic kidney disease, stage 3 (moderate) RELL DAN MD Aug 06, 2018 11:06
[2018-08-06 11:35] VITALS: BP 130/70
--- NOTE | 2018-08-06 11:35 | NUR ---
DISCHARGE INSTRUCTIONS GIVEN TO PATIENT WITH TIME ALLOWED FOR QUESTIONS. IV REMOVED WITH CATHETER TIP INTACT. BELONGINGS GATHERED. PATIENT LEFT VIA WHEELCHAIR ACCOMPANIED BY STAFF AND FAMILY. PATIENT LEFT FACILITY VIA PRIVATE VEHICLE.
--- NOTE | 2018-08-06 11:43 | Progress Note-Cardiology ---
Cardiology SOAP Progress Note Subjective: Feels well today Shortness of breath much improved No cp or palp or syncope Wishes to go home Objective: I&O/Vital Signs 08/06/18 08/06/18 08/06/18 08/06/18 00:00 00:00 01:00 03:50 Temp 98.6 98.3 Pulse 82 80 67 Resp 20 16 B/P (MAP) 136/63 (87) 125/63 (83) Pulse Ox 95 95 O2 Delivery Room Air Room Air Room Air 08/06/18 08/06/18 08/06/18 08/06/18 03:50 07:00 07:04 08:00 Pulse 68 Pulse Ox 97 O2 Delivery Room Air Room Air Room Air 08/06/18 08/06/18 08/06/18 08:00 09:00 11:35 Temp 96.8 Pulse 84 84 Resp 20 20 B/P (MAP) 130/70 (90) 130/70 Pulse Ox 97 97 O2 Delivery Room Air Room Air Room Air 08/06/18 00:00 Intake Total 860 ml Output Total 3750 ml Balance -2890 ml Weight (Pounds): 162 Weight (Ounces): 4.0 Weight (Calculated Kilograms): 73.386706 Constitutional: AAO x 3, well-developed, well-nourished Respiratory: other Cardiovascular: irregularly irregular, S1 and S2, systolic murmur Gastrointestional: soft, audible bowel sounds Extremities: No clubbing, No cyanosis, No significant edema Neurologic/Psychiatric: oriented x 3, grossly intact, power is 5/5 both on sides Skin: No rash on exposed areas, No ulcerations on exposed areas Results/Procedures: Labs Laboratory Tests 08/06/18 03:45: Sodium Level 138, Potassium Level 3.7, Chloride Level 100, Carbon Dioxide Level 26, Anion Gap 12, Blood Urea Nitrogen 33H, Creatinine 1.33H, Estimat Glomerular Filtration Rate 51, BUN/Creatinine Ratio 25, Glucose Level 95, Calcium Level 9.0 , Magnesium Level 2.1, B-Type Natriuretic Peptide 1329.6H Microbiology 08/03/18 Gram Stain - Final, Complete 08/03/18 Sputum Culture - Final, Complete Usual upper respiratory max Laboratory Tests 08/05/18 05:30 08/06/18 03:45 A/P: Assessment: Shortness of breath, multifactorial (see below) Ac on chronic systolic 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 in [place], [place] Arterial u/s of November 2017: moderate stenosis in the right SFA and the left common femoral artery; monophasic flow in the tibial vessels on the right side. There is slow monophasic flow in the left posterior tibial artery with absent flow in the dorsalis pedis on the left side Non-compliance. (He states he has not followed up with his family doctor or his acid filler for years) Plan: * Complex management due to multiple comorbidities * He wishes to be managed conservatively only at this time. States will think about invasive management and let us know if he wants that, but wishes to go home right now * Continue current regimen * Close outpt f/u, including f/u on lab work * I discussed his case in detail with Dr Irby on the phone this am BRAD MATTHEWS MD FACP FAC CCDS Aug 06, 2018 11:43
== END 2018-08-06 11:35 | disposition home or self-care (01) | DRG 291 ==
LOC: EDUNIT# 09:42 → ER 09:46 → ICU 12:34 → OBSVTOIN 08-04 07:46 → 4TH 08-04 11:02
PROVIDERS: ADMIT Family Medicine; ATTEND Family Medicine
DX: I13.0 Hypertensive heart and chronic kidney disease with heart failure and stage 1 through stage 4 chronic kidney disease, or unspecified chronic kidney disease (principal); I50.23 Acute on chronic systolic (congestive) heart failure; J44.1 Chronic obstructive pulmonary disease with (acute) exacerbation; I47.1 Supraventricular tachycardia; I48.2 Chronic atrial fibrillation; I25.10 Atherosclerotic heart disease of native coronary artery without angina pectoris; N18.3 Chronic kidney disease, stage 3 (moderate); R53.1 Weakness; F17.210 Nicotine dependence, cigarettes, uncomplicated; I73.9 Peripheral vascular disease, unspecified; E87.6 Hypokalemia; I42.0 Dilated cardiomyopathy; E11.22 Type 2 diabetes mellitus with diabetic chronic kidney disease; E11.21 Type 2 diabetes mellitus with diabetic nephropathy; I44.7 Left bundle-branch block, unspecified; D64.9 Anemia, unspecified; I27.20 Pulmonary hypertension, unspecified; I08.1 Rheumatic disorders of both mitral and tricuspid valves; Z91.19 Patient's noncompliance with other medical treatment and regimen; Z86.718 Personal history of other venous thrombosis and embolism
CPT/HCPCS: 36415; 71046; 80048; 80053; 80162; 83735; 83880; 84443; 84484; 85025; 86141; 87070; 87205; 87804; 93005; 93041; 93306; 94640; 94760; 94761

== ENCOUNTER → 2018-08-16 | Outpatient (CLI) | payer MEDICARE ==
[~2018-08-16] MED LIST changes: +APIX5TAB PO; +ASPI-983 PO; +DIGO125T PO; +FLUT12AE4 IH; +METO2.5T PO; +POTA-51 PO
[2018-08-16 14:18] LABS: POTASSIUM 5.1 MMOL/L (3.6-5.0)
[2018-08-16 14:19] LABS: CALCIUM 9.1 MG/DL (8.5-10.1); CREATININE SERUM 1.44 MG/DL (0.60-1.30); MAGNESIUM 2.2 MG/DL (1.8-2.4)
== END ==
LOC: LAB FS 13:12
PROVIDERS: ATTEND Internal Medicine Cardiovascular Disease
DX: I48.2 Chronic atrial fibrillation (principal); I25.5 Ischemic cardiomyopathy; I50.22 Chronic systolic (congestive) heart failure; N18.3 Chronic kidney disease, stage 3 (moderate); I70.413 Atherosclerosis of autologous vein bypass graft(s) of the extremities with intermittent claudication, bilateral legs; Z72.0 Tobacco use
CPT/HCPCS: 36415; 80048; 80162; 83735

== ENCOUNTER → 2018-08-23 | Outpatient (CLI) | payer MEDICARE | LOC: RAD 14:03 | PROVIDERS: ATTEND Nurse Practitioner Family | DX: I73.9 Peripheral vascular disease, unspecified (principal); F17.200 Nicotine dependence, unspecified, uncomplicated; I10 Essential (primary) hypertension | CPT/HCPCS: 93923 ==

== ENCOUNTER → 2018-08-30 | Outpatient (CLI) | payer MEDICARE ==
[~2018-08-30] MED LIST changes: +CATHETER FLUSH 10 ML SYR IV PRN; +REGADENOSON 0.4 MG/5 ML SYR (LEXISCAN) IV ONE
[2018-08-30 13:04] VITALS: BP 135/87
[2018-08-30 13:24] VITALS: BP 137/103
--- NOTE | 2018-08-30 16:15 | STRESS TEST ---
DATE OF SERVICE: 08/30/2018 RESTING AND POST REGADENOSON TECHNETIUM-99M TETROFOSMIN SPECT CT IMAGING ORDERING PHYSICIAN: Dr. Sidhu. CLINICAL DIAGNOSES: Ischemic cardiomyopathy, chronic atrial fibrillation. Baseline images were carried out after injection of 10.7 mCi technetium-99m Tetrofosmin. This was followed by 0.4 mg regadenoson and 31.6 mCi of technetium-99m Tetrofosmin for stress imaging. The electrocardiogram showed atrial fibrillation at baseline. Isolated premature ventricular contractions were seen. The patient noted mild shortness of breath following regadenoson infusion, which resolved in a few minutes. Review of images at rest and following stress indicates an inferolateral perfusion defect that is predominantly fixed. There is global hypokinesis of the left ventricle. There is inferolateral akinesis. Left ventricular ejection fraction is calculated to be 19%. Left ventricular end diastolic volume is 138 mL. TID is absent (1.04). CONCLUSIONS: 1. The study is suggestive of a small to moderate sized inferolateral myocardial infarction with a small amount of gabriel-infarct ischemia. 2. Global hypokinesis of left ventricle and localized inferolateral hypokinesis to akinesis. 3. Impairment of global left ventricular systolic function with a calculated ejection fraction of 19%. 4. Moderate cardiomegaly. Job ID: [id number] DocumentID: [id number] Dictated Date: 08/30/2018 15:49:04 [employer] Date: 08/30/2018 16:14:31 Dictated By: BRAD SIDHU MD, MA, FACP, FACC,
== END ==
LOC: CARD 10:15
PROVIDERS: ATTEND Internal Medicine Cardiovascular Disease
DX: I48.2 Chronic atrial fibrillation (principal); I25.5 Ischemic cardiomyopathy; I50.22 Chronic systolic (congestive) heart failure; N18.3 Chronic kidney disease, stage 3 (moderate); I73.9 Peripheral vascular disease, unspecified; Z72.0 Tobacco use
CPT/HCPCS: 78452; 93017

== ENCOUNTER 2018-09-18 17:43 | Emergency (ER) | payer MEDICARE ==
[~2018-09-18] VITALS: Ht 170.2 cm; Wt 74.8 kg
[~2018-09-18 17:43] MED LIST changes: -CATHETER FLUSH 10 ML SYR IV PRN; -REGADENOSON 0.4 MG/5 ML SYR (LEXISCAN) IV ONE
[2018-09-18] MEDS ORDERED: NS IV 1000 ML 1,000 ML IV SCH (18:17)
[2018-09-18 18:26] LABS: BASOPHILS % (AUTO) 0 % (0-10); EOSINOPHILS # (AUTO) 0.2 10^3/uL (0.0-0.3); EOSINOPHILS % (AUTO) 2 % (0-10); HEMATOCRIT 39 % (40-54); HEMOGLOBIN 13.9 G/DL (13.3-17.7); LYMPHOCYTES # (AUTO) 1.3 X 10^3 (1.0-4.0); LYMPHOCYTES % (AUTO) 13 % (12-44); MEAN CORPUSCULAR HEMOGLOBIN 37 PG (25-34); MEAN CORPUSCULAR HGB CONC 36 G/DL (32-36); MEAN CORPUSCULAR VOLUME 103 FL (80-99); MEAN PLATELET VOLUME 11.9 FL (7.4-10.4); MONOCYTES # (AUTO) 0.6 X 10^3 (0.0-1.0); MONOCYTES % (AUTO) 6 % (0-12); NEUTROPHILS % (AUTO) 78 % (42-75); PLATELET COUNT 156 10^3/uL (130-400); RED CELL DISTRIBUTION WIDTH 14.8 % (10.0-14.5); WHITE BLOOD COUNT 10.2 10^3/uL (4.3-11.0)
--- NOTE | 2018-09-18 18:28 | ED Lower Extremity ---
General Chief Complaint: Cardiac/General Problems Stated Complaint: STEMI Nursing Triage Note: Pt to ED via EMS. EMS reported possible STEMI. Pt reports working in garden today when pt began having R hip pain and became short of breath. Pt reports pushing shovel into the ground with R foot and then pain began. Pt reports taking a water pill at 1500. Upon arrival to ED pt c/o R hip pain and R foot numbness. Pt denies chest pain at this time. Nursing Sepsis Screen: No Definite Risk Source: patient, EMS Exam Limitations: no limitations History of Present Illness Date Seen by Provider: Sep 18, 2018 Time Seen by Provider: 17:40 Initial Comments The patient presents to ER by EMS from a small town outside of [place], [place] With chief complaint of he was working in the garden and started having some right hip pain after going in her brake taking his afternoon Lasix at 3 PM and going back at the garden. Then he had a hard time getting up and walking on his right hip. He said it was sharp radiating down his lateral calf about an 8 out of 10. He's never had a pain like this before no history of back problems, hip problems in his hip or knee. EMS was summonsed by his and when they got there they noted him to be in atrial fibrillation and obtain an EKG 12-lead each was read out as a new onset left bundle branch block with possible ST elevation RI. The patient denies any chest pain shortness of breath but he does have a history of coronary artery disease followed by Dr. Sidhu with stents in the past. No history of CABG. He denies shortness of breath wheezing although he does have a history of COPD. He's been followed by Dr. Smith, Pulmonology and plans to see a tipping machine operator automatic in [place], [place]. He does still smoke less than a pack per day. No history of diabetes. But he does have a history of Cholesterol and blood pressure problems. Recently blood pressure medicines were trimmed because he was having apparently some low blood pressure episodes. EMS gave the patient 324 mg of aspirin to chew up and 50 g of fentanyl and the patient now reports this pain as a 3 out of 10 and very comfortable. The patient does take aspirin 81 mg a day but does not think he takes Plavix or any blood thinners because he said his had a bad experience on blood thinners so he refuses to take them. Allergies and Home Medications Allergies Coded Allergies: lisinopril (Unverified Allergy, Unknown, 11/17/17) Home Medications Apixaban 5 Mg Tablet, 5 MG PO Q12H Prescribed by: RELL DAN on 08/06/18 1056 Aspirin 81 Mg Tablet.dr, 81 MG PO DAILY, (Reported) Carvedilol 25 Mg Tablet, 12.5 MG PO BID, (Reported) TAKES 1/2 (25MG) TABLET Fluticasone/Salmeterol 12 Gm Hfa.aer.ad, 2 PUFF IH BID@08,20 Prescribed by: RELL DAN on 08/06/18 1056 Furosemide 20 Mg Tablet, 20 MG PO 0800,1500, (Reported) Losartan Potassium 50 Mg Tablet, 50 MG PO DAILY, (Reported) Metolazone 2.5 Mg Tablet, 2.5 MG PO DAILY Prescribed by: RELL DAN on 08/06/18 1056 Potassium Chloride 20 Meq Tablet.er, 20 MEQ PO DAILY Prescribed by: RELL DAN on 08/06/18 1056 Spironolactone 25 Mg Tablet, 25 MG PO DAILY, (Reported) Patient Home Medication List Home Medication List Reviewed: Yes Review of Systems Constitutional: No chills, No diaphoresis EENTM: No ear discharge, No hearing loss Respiratory: No cough, No phlegm, No short of breath Cardiovascular: No chest pain, No edema; Hx of Intervention, vascular heart diseas Gastrointestinal: No abdominal pain, No constipation, No diarrhea, No nausea Genitourinary: No discharge, No dysuria Musculoskeletal: see HPI; No back pain; joint pain Skin: No pruritus, No rash Past Cnbvqlc-Okkvwu-Amjmhw Hx Patient Social History Alcohol Use: Occasionally Uses Number of Drinks Today: AA Alcohol Beverage of Choice: Beer Recreational Drug Use: No Smoking Status: Current Everyday Smoker Type Used: Cigarettes 2nd Hand Smoke Exposure: Yes Recent Foreign Travel: No Contact w/Someone Who Travel: No Recent Infectious Disease Expo: No Recent Hopitalizations: No Physical Abuse: No Sexual Abuse: No Immunizations Up To Date Date of Pneumonia Vaccine: Mar 07, 2015 Date of Influenza Vaccine: Mar 07, 2018 Seasonal Allergies Seasonal Allergies: No Past Medical History Surgeries: Yes Abdominal, Cardiac, Vascular Surgery Respiratory: Yes COPD Aneurysm, Atrial Fibrillation, Cardiomyopathy, Coronary Artery Disease, Deep Vein Thrombosis, Hypertension Neurological: No Genitourinary: No Gastrointestinal: No Musculoskeletal: No Endocrine: No HEENT: No Cancer: No Psychosocial: No Integumentary: No Blood Disorders: No Adverse Reaction/Blood Tranf: No Family Medical History No Pertinent Family Hx Physical Exam Vital Signs Vital Signs - First Documented 09/18/18 17:43 Temp 97.5 Pulse 108 Resp 15 B/P (MAP) 121/97 (105) Pulse Ox 97 O2 Delivery Nasal Cannula O2 Flow Rate 2.00 Capillary Refill : Less Than 3 Seconds Height, Weight, BMI Height: 5'7.00" Weight: 165lbs. 4.0oz. [id number]; 26.6 BMI Method:Stated General Appearance: WD/WN, no apparent distress HEENT: PERRL/EOMI, normal ENT inspection, pharynx normal Back: normal inspection, no vertebral tenderness, other (tenderness over the L5 -S1 facet joint just right lateral to the lumbar spine. Re-creates his symptoms don't extend.) Hips: left hip non-tender; bilateral hip normal inspection, bilateral hip normal range of motion, bilateral hip no evidence of injury; right hip bone tenderness (he did over the right groin and hip socket) Progress/Results/Core Measures Results/Orders Lab Results Laboratory Tests Test 09/18/18 17:48 09/18/18 20:00 Range/Units White Blood Count 10.2 4.3-11.0 10^3/uL Red Blood Count 3.76 L 4.35-5.85 10^6/uL Hemoglobin 13.9 13.3-17.7 G/DL Hematocrit 39 L 40-54 % Mean Corpuscular Volume 103 H 80-99 FL Mean Corpuscular Hemoglobin 37 H 25-34 PG Mean Corpuscular Hemoglobin Concent 36 32-36 G/DL Red Cell Distribution Width 14.8 H 10.0-14.5 % Platelet Count 156 130-400 10^3/uL Mean Platelet Volume 11.9 H 7.4-10.4 FL Neutrophils (%) (Auto) 78 H 42-75 % Lymphocytes (%) (Auto) 13 12-44 % Monocytes (%) (Auto) 6 0-12 % Eosinophils (%) (Auto) 2 0-10 % Basophils (%) (Auto) 0 0-10 % Neutrophils # (Auto) 8.0 H 1.8-7.8 X 10^3 Lymphocytes # (Auto) 1.3 1.0-4.0 X 10^3 Monocytes # (Auto) 0.6 0.0-1.0 X 10^3 Eosinophils # (Auto) 0.2 0.0-0.3 10^3/uL Basophils # (Auto) 0.0 0.0-0.1 10^3/uL Prothrombin Time 15.7 H 12.2-14.7 SEC INR Comment 1.2 0.8-1.4 Activated Partial Thromboplast Time 26 24-35 SEC D-Dimer 5.16 H 0.00-0.49 UG/ML Sodium Level 143 135-145 MMOL/L Potassium Level 4.8 3.6-5.0 MMOL/L Chloride Level 107 98-107 MMOL/L Carbon Dioxide Level 22 21-32 MMOL/L Anion Gap 14 5-14 MMOL/L Blood Urea Nitrogen 37 H 7-18 MG/DL Creatinine 1.56 H 0.60-1.30 MG/DL Estimat Glomerular Filtration Rate 43 BUN/Creatinine Ratio 24 Glucose Level 145 H 70-105 MG/DL Calcium Level 9.7 8.5-10.1 MG/DL Corrected Calcium 9.4 8.5-10.1 MG/DL Magnesium Level 2.2 1.8-2.4 MG/DL Total Bilirubin 0.8 0.1-1.0 MG/DL Aspartate Amino Transf (AST/SGOT) 22 5-34 U/L Alanine Aminotransferase (ALT/SGPT) 22 0-55 U/L Alkaline Phosphatase 34 L 40-136 U/L Myoglobin 205.4 H 10.0-92.0 NG/ML Troponin I 0.035 H 0.039 H <0.028 NG/ML B-Type Natriuretic Peptide 1120.7 H <100.0 PG/ML Total Protein 7.2 6.4-8.2 GM/DL Albumin 4.4 3.2-4.5 GM/DL Digoxin Level < 0.30 L 0.80-2.00 NG/ML My Orders Orders - MIKE GAMBLE Cbc With Automated Diff (09/18/18 18:17) Magnesium (09/18/18 18:17) Chest 1 View, Ap/Pa Only (09/18/18 18:17) Ekg Tracing (09/18/18 18:17) Cardiac Profile 1 (09/18/18 18:17) Comprehensive Metabolic Panel (09/18/18 18:17) Myoglobin Serum (09/18/18 18:17) Protime With Inr (09/18/18 18:17) Partial Thromboplastin Time (09/18/18 18:17) O2 (09/18/18 18:17) Monitor-Rhythm Ecg Trace Only (09/18/18 18:17) Lipid Panel (09/19/18 06:00) Ed Iv/Invasive Line Start (09/18/18 18:17) BNP (09/18/18 18:17) Fibrin Degradation Products (09/18/18 18:17) Ed Iv/Invasive Line Start (09/18/18 18:17) Ns Iv 1000 Ml (Sodium Chloride 0.9%) (09/18/18 18:17) Hip, Right, 2 Views (09/18/18 18:17) Digoxin (09/18/18 19:35) Troponin I (09/18/18 20:00) Carvedilol Tablet (Coreg Tablet) (09/18/18 20:15) Medications Given in ED Current Medications Medications Dose Ordered Sig/Grant Route Start Time Stop Time Status Last Admin Dose Admin Carvedilol 12.5 mg ONCE ONCE PO 09/18/18 20:15 09/18/18 20:16 DC 09/18/18 20:11 12.5 MG Vital Signs/I&O 09/18/18 17:43 Temp 97.5 Pulse 108 Resp 15 B/P (MAP) 121/97 (105) Pulse Ox 97 O2 Delivery Nasal Cannula O2 Flow Rate 2.00 Blood Pressure Mean: 105 Progress Progress Note #1: Time: 18:31 Progress Note Well score for DVT is negative two points. Low risk group for DVT. Unlikely according to [facility] DVT studies. Patient has a history of left bundle branch block which is seen on our EKG. Our plan would be to obtain a single set of troponins that the patient's never had any chest pain. He is mildly tachycardic around 120 with his A. fib and may benefit either from having his beta blockers increased or some IV fluids so we' ll start with a liter saline as he may just be dehydrated from working out in the garden all day. A d-dimer was ordered however the patient has fairly low likelihood for DVT and I suspect this is more likely he has wrenched his back. His back examination reveals tenderness over his L5-S1 facet joint which re-create some of his symptoms in his leg. We'll plan to get an x-ray over his right hip since it is also tender over the socket. Progress Note #2: Time: 20:55 Progress Note The patient's troponin increased by 11% which is not significant. The digoxin is nondetectable. He still not endorsing any chest pain the entire time. His troponin in the past has not been undetectable. Kidney function and other labs are at baseline. We gave him his evening dose of Coreg and some IV fluids and his heart rates days in the mid 80s upwards of 100 still in atrial fibrillation. This is a significant improvement and no dose changes we'll be necessary to his medications. Initial ECG Impression Date: Sep 18, 2018 Initial ECG Impression Time: 17:44 Initial ECG Rate: 120 Initial ECG Rhythm: A Fib/Flutter Initial ECG Intervals: Normal Initial ECG Impression: Atrial Fibrillation Initial ECG Comparisson: Unchanged Comment History of left bundle-branch block. Atrial fibrillation with a rate of about 120 on average. Diagnostic Imaging Diagonstic Imaging: Xray Plain Films/CT/US/NM/MRI: chest (1 view) Comments [facility]. [place], [place] NAME: MARCOS LOPEZ [facility] REC#: [id number] PT STATUS: REG ER : 1935 PHYSICIAN: MIKE GAMBLE MD ADMIT DATE: 09/18/18/ER Draft Date of Exam:09/18/18 CHEST 1 VIEW, AP/PA ONLY Examination: Chest, single PA view Indication: Shortness of breath. Comparison: Chest radiographs performed on 08/03/2018. Findings: The lungs are clear and the pulmonary vasculature is normal. No pneumothorax or large pleural effusion. The cardiomediastinal silhouette is normal. No acute osseous abnormality is identified. Impression: No acute chest disease. No significant change from prior. Dictated on workstation # [id number] Dict: 09/18/181928 Trans: 09/18/181932 [facility] [id number] Interpreted by: SHABANA PEARSON DO Electronically signed by: Reviewed: Reviewed by Me Diagonstic Imaging: Xray Plain Films/CT/US/NM/MRI: hip (right) Comments [facility] [place] NAME: MARCOS LOPEZ [facility] REC#: [id number] PT STATUS: REG ER : 1935 PHYSICIAN: MIKE GAMBLE MD ADMIT DATE: 09/18/18/ER Draft Date of Exam:09/18/18 HIP, RIGHT, 2 VIEWS EXAMINATION: Right hip, AP and frog-leg views. INDICATION: Right hip pain. No history of trauma. COMPARISON: None. FINDINGS: No fracture or acute osseous abnormality. Bony alignment is maintained, without evidence of dislocation. Mild degenerative changes are noted in the right hip. The visualized pelvis appears intact. Vascular stent graft is demonstrated in the medial soft tissues of the proximal lower extremity. Surgical clips are also demonstrated. IMPRESSION: No acute fracture or dislocation. Dictated on workstation # [id number] Dict: 09/18/181929 Trans: 09/18/181934 [facility] [id number] Interpreted by: SHABANA PEARSON DO Electronically signed by: Reviewed: Reviewed by Me Consults : Consulting Physician: PROSPER THOMPSON MD Consults Notes We discussed case lab imaging EKG and findings and since the patient never had any chest pain he is fine with doing a two-hour rule out as long as the troponin is not trending upwards. If it is trending up then he recommends an overnight stay to follow-up. We will add a digoxin and plan to repeat the troponin at 2000 hrs. if it is okay we'll let him go home. Departure Impression Primary Impression: Low back pain with sciatica Qualified Codes: M54.41 - Lumbago with sciatica, right side Disposition: 01 HOME, SELF-CARE Condition: Stable Departure-Patient Inst. Decision time for Depature: 20:57 Referrals: NO,LOCAL PHYSICIAN (PCP/Family) Primary Care Physician Patient Instructions: Low Back Pain (DC) Add. Discharge Instructions: Your low back pain I think is contributing to the pain you're feeling in your leg. I would like you to use Tylenol 1000 mg every 8 hours as necessary for pain. You can also use topical creams such as Aspercreme, icy hot, Biofreeze, etc. Stretch the leg out and expect improvement in 1-2 weeks. If you're having breakthrough pain keeps you from being functional you can take one tablet of tramadol every 6 hours as needed. Tramadol will cause constipation which can be combated with MiraLAX and can also cause some drowsiness so be careful operating heavy machinery and do not mix it with alcohol. If you're still having pain after a couple weeks then you should follow-up with primary care for reevaluation. If you begin to have inability to control your bowels or bladder or you have difficulty walking, numbness or other worrisome symptoms then you should return to the nearest ER for further evaluation. All discharge instructions reviewed with patient and/or family. Voiced understanding. Scripts Tramadol HCl (Tramadol HCl) 50 Mg Tablet 50 MG PO Q6H PRN for PAIN, #20 TAB 0 Refills Prov: MIKE GAMBLE 09/18/18 MIKE GAMBLE Sep 18, 2018 18:28
[2018-09-18 18:41] LABS: ALBUMIN 4.4 GM/DL (3.2-4.5); BILIRUBIN,TOTAL 0.8 MG/DL (0.1-1.0); CALCIUM 9.7 MG/DL (8.5-10.1); CREATININE SERUM 1.56 MG/DL (0.60-1.30); MAGNESIUM 2.2 MG/DL (1.8-2.4); POTASSIUM 4.8 MMOL/L (3.6-5.0); TOTAL PROTEIN 7.2 GM/DL (6.4-8.2)
--- NOTE | 2018-09-18 18:55 | NUR ---
report given to LB Saleem
[2018-09-18 19:08] LABS: INR 1.2 (0.8-1.4); PROTHROMBIN TIME PATIENT 15.7 SEC (12.2-14.7)
--- NOTE | 2018-09-18 19:33 | Diagnostic Imaging Report ---
Examination: Chest, single PA view Indication: Shortness of breath. Comparison: Chest radiographs performed on 08/03/2018. Findings: The lungs are clear and the pulmonary vasculature is normal. No pneumothorax or large pleural effusion. The cardiomediastinal silhouette is normal. No acute osseous abnormality is identified. Impression: No acute chest disease. No significant change from prior. Dictated by: Dictated on workstation # [id number]
--- NOTE | 2018-09-18 19:36 | Diagnostic Imaging Report ---
EXAMINATION: Right hip, AP and frog-leg views. INDICATION: Right hip pain. No history of trauma. COMPARISON: None. FINDINGS: No fracture or acute osseous abnormality. Bony alignment is maintained, without evidence of dislocation. Mild degenerative changes are noted in the right hip. The visualized pelvis appears intact. Vascular stent graft is demonstrated in the medial soft tissues of the proximal lower extremity. Surgical clips are also demonstrated. IMPRESSION: No acute fracture or dislocation. Dictated by: Dictated on workstation # [id number]
[2018-09-18] MEDS ORDERED: CARVEDILOL 12.5 MG (COREG) TABLET PO ONE (20:15)
[2018-09-18] MEDS ORDERED: TRAM50TA2 PO (20:59)
[2018-09-18 21:14] VITALS: BP 127/93
== END 2018-09-18 21:16 | disposition home or self-care (01) ==
LOC: EDUNIT# 17:43 → ER 17:44
DX: M54.41 Lumbago with sciatica, right side (principal); J44.9 Chronic obstructive pulmonary disease, unspecified; I10 Essential (primary) hypertension; I25.10 Atherosclerotic heart disease of native coronary artery without angina pectoris; I42.9 Cardiomyopathy, unspecified; I48.91 Unspecified atrial fibrillation; F17.210 Nicotine dependence, cigarettes, uncomplicated; Z86.718 Personal history of other venous thrombosis and embolism; Z98.890 Other specified postprocedural states; Z79.01 Long term (current) use of anticoagulants; Z79.82 Long term (current) use of aspirin; Z79.51 Long term (current) use of inhaled steroids
CPT/HCPCS: 36415; 71045; 73502; 80053; 80162; 83735; 83874; 83880; 84484; 85025; 85379; 85610; 85730; 93005; 93041

== ENCOUNTER 2018-09-29 19:35 | Emergency (ER) | payer MEDICARE ==
[~2018-09-29] VITALS: Ht 175.3 cm; Wt 88.0 kg
[~2018-09-29 19:35] MED LIST changes: +TRAM50TA2 PO
[2018-09-29] MEDS ORDERED: CATHETER FLUSH 10 ML SYR IV ONE (19:37)
--- NOTE | 2018-09-29 19:39 | NUR ---
1938 - PATIENT ARRIVED BY EMS TO ROOM 3. CPR WAS IN PROCESS, PT. WAS INTUBATED WITH A COMBI TUBE, HE HAD BEEN FOUND DOWN RIGHT AFTER DINNER, FIRST RESPONDERS STARTED CPR AND SHOCKED THE PATIENT 3 TIMES. UPON ARRIVAL CHEST COMPRESSIONS CONTINUED. PT. HAS A HISTORY OF CHF AND A UT. THE NORMAL SALINE THAT WAS RUNNING UPON ARRIVAL WAS WIDE OPEN. PT. HAD AN IO THAT HAD BEEN PLACED BY EMS IN THE RIGHT LOWER LEG. 1939 - EPI 0.1 MG/ML AMP GIVEN IV. PT. HAD NO PULSE WAS IN PEA ARREST. 1940 - CPR STARTED, CALCIUM CHLORIDE 13.6 MEQ PER 10 ML GIVEN IVP. PT. HAS A WEAK PULSE, HEART RATE 35. 1942 STOPPED COMPRESSIONS. PT. HAS A GOOD PULSE. ATROPINE 1 MG/10 ML, 0.4 MG GIVEN. PT. WAS SHOCKED AT 200 BECAUSE HE WAS IN [place] RATE 144. 1943 CPR STARTED. 1945 - 100 MG. LIDOCAINE GIVEN IVP AND 1 MG. PER 10 ML OF EPI GIVEN IVP 1946 NA BICARB 50 MEQ/50 ML GIVEN IVP. PT. HAS NO PULSE. C02 IN PLACE AT 58, BP 91/50 SATS 63, HR 143 1949 HELD CHEST COMPRESSIONS HEART RATE 36. 1949 - ATROPINE .5 GIVEN OF 1 MG/[address] 1950 DOCTOR REMOVED THE COMBI TUBE. BAGGING THE PATIENT. BP 113/58, HR, 62, PT. HAS SHALLOW BREATHS. 1955 - 0.5 MG ATROPINE OF 1 MG./10 ML GIVEN IVP. CALLED FOR AIR AMBULANCE NO ONE IS FLYING DO TO WEATHER. BP 80/61, HR 54, SATS 63. PT. INTUBATED 25 AT THE LIPS 7.5 ET TUBE, CAPNOGRAPHY IN PLACE GOOD BREATH SOUNDS. BILAT. 2001 - BP 80/61, HR, 59 SATS 68 2002 - FENTANYL 100 MCG GIVEN IVP 2002 - 20 MG ETOMITATE GIVEN IVP SUCTIONING THE PATIENT AT THIS TIME. BP 71/54, HR 72, SATS 48 2007 - LEVOPHED 0.1 MCG/MIN DRIP STARTED IV 2007 - 2ND BAG OF NORMAL SALINE WIDE OPEN 2012 - X-RAY DONE AT THIS TIME 2012 VENTILATOR PLACED TIDAL VOLUME 500, FIO2 WAS 100% 2016 FENTANYL 100 MCG GIVEN IVP 2019 SALINE LOCK [address] IN LEFT ANKLE 2020 - FENTANYL 100 MCG IVP 2020 INCREASED THE LEVOPHED DRIP TO 0.5 MCG/KG/UT. 2020 - STARTED EPI DRIP 10 MG IN 250 CC NS AT 3 MCG/MIN BP 66/53 HR 70, RESP 29 2025 NG TUBE PLACED ORAL WITH REDDISH BROWN 100 CC RETURN 2026 EPI DRIP INCREASE TO 5 MCG PER MIN 2029 UA SENT TO LAB. DOCTOR CALLED OLLIE PERDOMO 2034 TIME OUT FOR CENTRAL LINE PLACEMENT. 2034 - INCREASED EPI DRIP TO 8 MCG/MIN 2039 - ABG AND LABS SENT TO THE LAB 2042 BP WAS 79/56, SATS 93%, HR 60, RESP. 28 2043 - DOPAMINE 5 MCG/KG/MIN STARTED 2043 - NORMAL SALINE 500 CC/H GIVEN 2039 EKG DONE 2047 - INCREASED RESP RATE TO 22 ON THE VENT. [address] RIGHT GROIN 2048 - NA BICARB 50 MEQ/50 ML GIVEN IVP, ALL LINES TRANSFERED TO CENTRAL LINE AND THE IO AND LINE THAT WAS IN THE LEFT ANKLE WAS SALINE LOCKED. 2051 FENTANYL 100 MCG GIVEN IVP 2106 - FAMILY HERE AT THIS TIME. DOCTOR TALKING WITH THE FAMILY. 2111 - FENTANYL 100 MCG GIVEN IVP 2111 - ATIVAN 1 MG. IVP 2114 PER DOCTOR THE ET TUBE WAS REMOVED AND IV DRIPS WERE STOPPED 2117 - FENTANYL 100 CMG GIVEN IVP 2122 - TIME OF 2152 - DOCTOR NOTIFIED DOCTOR ELIZABETH OF PATIENTS 2208 - [facility] TRANSPLANT NOTIFIED OF PATIENTS 2247 - NOTIFIED [facility] IN [place] OF NEED FOR THE HOME.
[2018-09-29] MEDS: EPINEPHrine INJECTION 1 MG/ML AMP IV STA ×2 (19:40→19:46)
[2018-09-29] MEDS: CALCIUM CHLORIDE 1 GM/10 ML (IMS) SYR INJ ONE (19:41)
[2018-09-29] MEDS: ATROPINE INJ 0.4 MG/ML SDV IV ONE ×2 (19:43→19:56)
[2018-09-29] MEDS: LIDOCAINE BOLUS 100 MG/5 ML (IMS) SYR IV ONE (19:46)
[2018-09-29] MEDS: SODIUM BICARB 8.4% 50 MEQ/50 ML (ABBOTT) SYR IV ONE ×2 (19:47→20:49)
[2018-09-29] MEDS: ATROPINE INJECTION 1 MG/10 ML SYR (ABBOTT) IV ONE (19:50)
[2018-09-29] MEDS: ETOMIDATE IV SOLN 20 MG/10 ML VIAL IV ONE (20:03)
[2018-09-29] MEDS: fentaNYL INJECTION 100 MCG/2 ML AMP IVP STA ×3 (20:03→21:18)
[2018-09-29] MEDS: NS IV 1000 ML 1,000 ML ONE (20:08)
[2018-09-29] MEDS: NS (IVPB) 250 ML ONE (20:08)
[2018-09-29] MEDS: NOREPINEPHRINE 4 MG/4 ML (LEVOPHED) AMP IV ONE (20:08)
[2018-09-29] MEDS: NOREPINEPHRINE 4 MG in NS (IVPB) 250 ML IV STA (20:08)
[2018-09-29] MEDS: NS IV 1000 ML 1,000 ML IV STA (20:08)
[2018-09-29] MEDS: EPINEPHrine 1 MG INJECTION 2 MG in NS (IVPB) 248 ML IV STA (20:20)
[2018-09-29] MEDS: fentaNYL INJECTION 100 MCG/2 ML AMP ONE ×3 (20:21→21:12)
--- NOTE | 2018-09-29 20:40 | Diagnostic Imaging Report ---
EXAMINATION: Portable chest. INDICATION: Unresponsive. COMPARISON: Comparison made with a prior study from September 18, 2018. FINDINGS: The patient has been intubated. The tip of the endotracheal tube is just above the level of the lacey. This could be slightly retracted. Cardiac size is unchanged. There is some slight increased congestion of the central pulmonary vascularity compared to the prior exam. There is no alveolar consolidation. There is no effusion. There is no pneumothorax. IMPRESSION: 1. Interval intubation. Endotracheal tube is just above the lacey and could be slightly retracted. 2. Enlarged cardiac silhouette with slight increase in central pulmonary vascular congestion. There are no alveolar infiltrates, effusion, or evidence of pneumothorax. Dictated by: Dictated on workstation # [id number]
[2018-09-29] MEDS: NS IV 500 ML 500 ML IV SCH (20:44)
[2018-09-29] MEDS: DOPamine DRIP 250 ML IV STA (20:44)
[2018-09-29] MEDS: LORazepam INJ 2 MG/ML (ATIVAN) VIAL ONE (21:12)
[2018-09-29] MEDS: MIDAZOLAM 5 MG/5 ML (VERSED) VIAL IVP STA (21:18)
[2018-09-29 21:23] VITALS: BP 0/0
[2018-09-29] MEDS: LORazepam INJ 2 MG/ML (ATIVAN) VIAL IVP ONE (21:23)
--- NOTE | 2018-09-29 22:10 | ED CPR ---
HPI-CPR General Chief Complaint: Code Blue Stated Complaint: CODE BLUE Source of Information: EMS History of Present Illness Date Seen by Provider: Sep 29, 2018 Time Seen by Provider: 19:39 Initial Comments This is a 83 y/om who presents to the ED in cardiac arrest. Per EMS report history of MIs/CHF. Found collapsed/pulseless a few minutes after dinner. Down time approx 3-5 minutes prior to bystander CPR started. Defibrillated x 3 in the field for V.fib arrest. Given Amiodarone 300mg, 150mg, and Epi through IO to RLE. Had Combi tube placed with End-tidal CO2 in 20s-30s. First responders confirmed full code status. Transitioned into PEA after defibrillations. Allergies and Home Medications Allergies Coded Allergies: lisinopril (Unverified Allergy, Unknown, 11/17/17) Home Medications Apixaban 5 Mg Tablet, 5 MG PO Q12H Prescribed by: RELL DAN on 08/06/18 1056 Aspirin 81 Mg Tablet.dr, 81 MG PO DAILY, (Reported) Carvedilol 25 Mg Tablet, 12.5 MG PO BID, (Reported) TAKES 1/2 (25MG) TABLET Fluticasone/Salmeterol 12 Gm Hfa.aer.ad, 2 PUFF IH BID@08,20 Prescribed by: RELL DAN on 08/06/18 1056 Furosemide 20 Mg Tablet, 20 MG PO 0800,1500, (Reported) Losartan Potassium 50 Mg Tablet, 50 MG PO DAILY, (Reported) Metolazone 2.5 Mg Tablet, 2.5 MG PO DAILY Prescribed by: RELL DAN on 08/06/18 1056 Potassium Chloride 20 Meq Tablet.er, 20 MEQ PO DAILY Prescribed by: RELL DAN on 08/06/18 1056 Spironolactone 25 Mg Tablet, 25 MG PO DAILY, (Reported) Tramadol HCl 50 Mg Tablet, 50 MG PO Q6H PRN for PAIN Prescribed by: MIKE GAMBLE on 09/18/182058 Patient Home Medication List Home Medication List Reviewed: Yes Review of Systems Review of Systems Constitutional: no symptoms reported, other (Unable to obtaine 2/2 acuity.) Other Comments Unable to obtain 2/2 acuity Past Fkvtdfe-Sklygt-Cdvsgs Hx Patient Social History Alcohol Beverage of Choice: Beer Type Used: Cigarettes 2nd Hand Smoke Exposure: Yes Recent Foreign Travel: No Contact w/Someone Who Travel: No Recent Hopitalizations: No Immunizations Up To Date Date of Pneumonia Vaccine: Mar 07, 2015 Date of Influenza Vaccine: Mar 07, 2018 Seasonal Allergies Seasonal Allergies: No Past Medical History Surgeries: Yes Abdominal, Cardiac, Vascular Surgery Respiratory: Yes COPD Aneurysm, Atrial Fibrillation, Cardiomyopathy, Coronary Artery Disease, Deep Vein Thrombosis, Hypertension Neurological: No Genitourinary: No Gastrointestinal: No Musculoskeletal: No Endocrine: No HEENT: No Cancer: No Psychosocial: No Integumentary: No Blood Disorders: No Adverse Reaction/Blood Tranf: No Family Medical History No Pertinent Family Hx Physical Exam Vital Signs Capillary Refill : Height, Weight, BMI Height: 5'7.00" Weight: 165lbs. 4.0oz. 74.587734pw; 26.6 BMI Method:Stated General Appearance: Other (Unresponsive ) HEENT: Other (Pupils 3-4 mm and reactive bilateral) Neck: No JVD; Other (Trachea midline) Respiratory: Other (Bilateral breath sounds present with bagging, intermittently taking small spontaneous respirations. ) Cardiovascular: Other (Bilateral femoral pulses present with chest compressions. no radial or DP pulses, Cap refill approx 4-5 secs in all 4 extremities) Gastrointestinal: No Pulsatile Mass, Soft Extremity: No Pedal Edema, Slow Capillary Refill; No Swelling Neurologic/Psychiatric: Other (Unresponsive ) Skin: Cool; No Cyanosis, No Damp Progress/Results/Core Measures Results/Orders My Orders Orders - LUZ MARINA HUDSON T DO Norepinephrine (Levophed) (09/29/18 19:59) Ns (Ivpb) (Sodium Chloride 0.9%) (09/29/18 19:59) Ns Iv 1000 Ml (Sodium Chloride 0.9%) (09/29/18 20:03) Chest 1 View Ap/Pa Only (09/29/18 20:22) Fentanyl Injection (Sublimaze Injection (09/29/18 20:50) Fentanyl Injection (Sublimaze Injection (09/29/18 21:06) Lorazepam Injection (Ativan Injection) (09/29/18 21:07) Fentanyl Injection (Sublimaze Injection (09/29/18 21:12) Progress Progress Note : Time: 21:23 Progress Note Pt presented in active cardiac arrest. Care given per ACLS protocol. Please refer to disbursing officer per complete details. Pt had intiial ROSC at 194, bradycardic weak pulses. Responsive to atropine but then had VF arrest at 1943, defibrillated and CPR started again. Required defibrillation again. ROSC at 1949 , again bradycardic and given atropine. pt was intubated as no O2 sat had been obtained and end tidal CO2 was consistently in 20s-30s. Intubated at 1955. Post ROSC required titration of Levophed, Epi and Dopamine gtts. Accepting physician obtained at 2029 at [facility] ED. Family arrived and discussed critically ill pt. Discussed concerns of anoxic brain injury and possibility of poor neurological outcome. Discussed at length with pt's Spouse Laurel and the pt's two children. They decided that they would like to withdraw care and provide comfort care. Prior to palliative extubation pt began having prominent decorticate posturing of his upper extremities. Pt was extubated, fentanyl, ativan and versed would provided for appropriate comfort care and pt with multiple family members at bedside at 2122. 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 Initial ECG Impression Date: Sep 29, 2018 Initial ECG Impression Time: 20:40 Comment Bradycardic, wide complex QRS Rhythm with RBBB with frequent PVCs. Diagnostic Imaging Comments CXR Intubation, tube just above the lacey. Cardiomegaly, no pulmonary effusion, infiltrate or PTX. Reviewed: Reviewed [facility] Critical Care Note Critical Care Start Time: 19:39 Stop Time: 21:23 Total Time (minutes) 90 Date of : Sep 29, 2018 Time of : 21:23 Progress Critical Care time exclusive of procedures. Time spent in direct supervision of care, titration of medications, results review and discussion with family/ consultants. Departure Impression Primary Impression: CAD (coronary artery disease) Additional Impressions: Aspiration into respiratory tract Ventricular fibrillation Cardiac arrest Acute respiratory failure Cardiogenic shock Disposition: 20 Condition: Departure-Patient Inst. Referrals: NO,LOCAL PHYSICIAN (PCP/Family) Primary Care Physician LUZ MARINA HUDSON DO Sep 29, 2018 22:10
[2018-09-30] MEDS: fentaNYL INJECTION 100 MCG/2 ML AMP IVP STA ×2 (00:44→00:45)
[2018-09-30] MEDS: fentaNYL INJECTION 100 MCG/2 ML AMP IVP PRN (00:46)
[2018-09-30] MEDS ORDERED: MIDAZOLAM 5 MG/5 ML (VERSED) VIAL ONE (10:35)
[2018-09-30] MEDS ORDERED: fentaNYL INJECTION 100 MCG/2 ML AMP ONE (10:35)
[2018-09-30] MEDS ORDERED: ETOMIDATE IV SOLN 20 MG/10 ML VIAL ONE (10:35)
== END 2018-09-30 00:02 | disposition expired ==
LOC: EDUNIT# 19:35 → ER FS 19:36
DX: I46.9 Cardiac arrest, cause unspecified (principal); I25.10 Atherosclerotic heart disease of native coronary artery without angina pectoris; J96.00 Acute respiratory failure, unspecified whether with hypoxia or hypercapnia; R57.0 Cardiogenic shock; I48.91 Unspecified atrial fibrillation; I42.9 Cardiomyopathy, unspecified; J44.9 Chronic obstructive pulmonary disease, unspecified; I10 Essential (primary) hypertension; Z86.718 Personal history of other venous thrombosis and embolism; Z79.01 Long term (current) use of anticoagulants; Z79.82 Long term (current) use of aspirin; Z79.51 Long term (current) use of inhaled steroids; Z77.22 Contact with and (suspected) exposure to environmental tobacco smoke (acute) (chronic); Z98.890 Other specified postprocedural states
CPT/HCPCS: 31500; 71045